=== PATIENT | female | born 1965 | race Caucasian/White ===

== ENCOUNTER → 2017-09-02 14:12 | Outpatient (CLI) | payer OTHER, SELFPAY ==
--- NOTE | 2017-09-02 14:14 | MR_ITS ---
MR shoulder RT wo con Ordering Physician: Edwin Islas MD Patient Age: 52 years: Female HISTORY: ITS.REASON: ROTATOR CUFF SYNDROME OF RIGHT SHOULDER Shoulder pain for over 6 months or longer. Limited range of motion TECHNIQUE: Multiplanar multisequence imaging 1.5 [facility] MRI. COMPARISON :No plain films FINDINGS:. Multiple findings, abnormalities Abnormal Rotator Cuff: Supraspinatus tendon Markedly thickened inflamed appearing supraspinatus tendon reflecting prominent chronic tendinopathy likely mucoid degeneration throughout the enlarged supraspinatus tendon. There may be some associated undersurface tear at the more superior fibers appear intact.. Sagittal image 9. No supraspinatus tendon retraction.. No prominent fluid at subdeltoid subacromial bursa Subscapularis tendon appears thickened but with only mild tendinopathy The Superior Glenoid Labrum appears irregular,-suspect degenerated and possibly torn. A Thickened swollen & enlarged structure leads from abnormal appearing superior labrum. Difficult to tell this reflects a torn biceps tendon as as I lose the biceps tendon as it passes superior to the bicipital groove. It may be a torn biceps versus Marcia abnormal middle glenohumeral ligament ( and/or superiorGHL) accounting for this ill-defined unusual thickened edematous appearing structure on axial image 11, sagittal slice 13 passing through the anterior interval region. & continuing distal along the superior margin of the subscapularis tendon . There is fluid tracking along the biceps tendon sheath is some minimal questionable debris more inferiorly along this tendon sheath. Prominent large joint effusion with with fluid extending to the anterior subcoracoid recess.. Developing Arthritic changes at glenohumeral joint with Hypertrophic lipping is seen about the margin of the humeral head most evident. Mild narrowing at the glenohumeral joint inferiorly. . Mild to moderate AC joint arthropathy, hypertrophy. . Just posterior and superior to the subscapularis tendon, towards anterior interval region, there abnormal thickened structure with increased signal. I would question & am suspect this reflects a swollen abnormal/ injured middle glenohumeral ligament. Note the irregularity at the anterior superior glenoid labrum which may reflect disruption at the attachment of the MCL. And possibly the superior GHL . The muscles of rotator cuff are actually fairly well maintained. Infraspinatus and teres minor intact. ------ IMPRESSION: ----- Variety of abnormalities.--- 1.... Prominent Chronic Supraspinatus Tendinopathy. .. Diffusely prominent thickened supraspinatus tendon with increased signal likely reflecting prominent chronic tendinopathy/ mucoid degeneration. Likely diffuse mucoid degeneration along with partial tears along inferior surface (But no full-thickness tear nor retraction) 2.. Abnormal appearing Superior Glenoid Labrum,... At ~ 11- 12 o'clock position Suspect abnormal complex of structures leading to this irregular & likely torn superior labrum. ... Middle Glenohumeral Ligament I suspect is enlarged & edematous with increased signal throughout.- Possibly torn, question early along with the superior glenohumeral ligament an possibly anterior joint capsule. ... In addition the Biceps Tendon with increased signal & ill-defined as it passes over the humeral head & becomes lost as it passes towards towards the biceps anchor..- Either reflecting significant tendinopathy or tear of biceps tendon 3. Prominent joint effusion. Generous fluid extends to the subcoracoid recess; but no significant fluid in the subacromial bursa 4... Developing degenerative changes at inferior glenohumeral joint also noted 5... Mild/moderate AC joint arthropat
== END ==
PROVIDERS: PCP Internal Medicine Adolescent Medicine; Visit Provider Internal Medicine Adolescent Medicine
DX: M75.101 Unspecified rotator cuff tear or rupture of right shoulder, not specified as traumatic (principal)
CPT/HCPCS: 73221

== ENCOUNTER → 2018-01-11 10:20 | Outpatient (CLI) | payer OTHER, SELFPAY ==
--- NOTE | 2018-01-11 10:22 | MM_ITS ---
MM Dig screening mamm BI w/CAD ORDERING PHYSICIAN : Guillermo Ortiz MD PATIENT AGE: 53 years GENDER: Female COMPARISON: June 2015, September 2016, INDICATION: ITS.REASON: Routine Screening Mammogram no hormones. No new complaints Previous biopsy right breast. Family history. Paternal grandmother TECHNIQUE: Standard CC and MLO images were obtained. R2 CAD reviewed. FINDINGS: Lower density breast. Generalized fatty replacement. RIGHT BREAST:Area of mild architectural distortion in density at the 12:00 right breast on this is been seen dating back to 2015 as well as 2012... Appears reflect the previous biopsy right breast. Stable benign calcification right breast as well. LEFT BREAST:Stable with no areas of concern IMPRESSION:------- No significant new findings . Follow-up in one year recommended Long-standing Subtle architectural distortion & vague density superior right breast from previous biopsy. BI-RADS Category: 2 Benign Finding(s) RECOMMENDED FOLLOW-UP: 1YR 1 YEAR FOLLOW-UP (A letter has been sent to the patient regarding results of the study.)
== END ==
PROVIDERS: PCP Internal Medicine Adolescent Medicine; Visit Provider Nurse Practitioner Obstetrics & Gynecology
DX: Z12.31 Encounter for screening mammogram for malignant neoplasm of breast (principal)
CPT/HCPCS: 77067

== ENCOUNTER 2018-01-19 09:00 | Outpatient (RCR) | payer OTHER, SELFPAY | END 2018-01-19 09:01 | disposition home or self-care (01) | LOC: PT 09:00 | PROVIDERS: PCP Internal Medicine Adolescent Medicine; Visit Provider Orthopaedic Surgery | DX: M75.81 Other shoulder lesions, right shoulder (principal) | CPT/HCPCS: 97010; 97014; 97016; 97033; 97035; 97110; 97140; 97163; 97164; G0283 ==

== ENCOUNTER → 2018-06-25 05:08 | Outpatient (CLI) | payer OTHER, SELFPAY ==
[2018-06-25 08:10] LABS: Alanine Aminotransferase 62 U/L (12-78); Albumin Level 3.7 gm/dL (3.4-5.0); Alkaline Phosphatase 52 U/L (46-116); Anion Gap 15.8 mEq/L (5-15); Aspartate Amino Transferase 26 U/L (15-37); Bilirubin,Total 0.3 mg/dL (0.2-1.0); Blood Urea Nitrogen 19 mg/dL (7-18); Calcium 9.7 mg/dL (8.5-10.1); Carbon Dioxide 26 mmol/L (21.0-32.0); Chloride 103 mmol/L (98-107); Chol/HDL Ratio 6.3 (1-3.5); Cholesterol 240 mg/dL (140-200); Creatinine,Serum 1.01 mg/dL (0.55-1.02); Estimated Glomerular Filt Rate 58 ml/min (>60); GFR (African American) 70 ML/MIN (>60); Globulin 3.7 gm/dl (1.3-3.2); Glucose 235 mg/dL (74-106); HDL Cholesterol 38 mg/dL (29-89); LDL Cholesterol 140 mg/dL (0-130); Potassium 4.8 mmoL/L (3.5-5.1); Sodium 140 mmol/L (136-145); Total Protein,Serum 7.4 gm/dL (6.4-8.2); Triglycerides 308 mg/dL (30-200); VLDL Cholesterol 62 mg/dL (0-40)
[2018-06-25 08:34] LABS: Hemoglobin A1C 9.1 % (0.0-7.0)
== END ==
PROVIDERS: PCP Internal Medicine Adolescent Medicine; Visit Provider Internal Medicine Adolescent Medicine
DX: E11.9 Type 2 diabetes mellitus without complications (principal); Z79.4 Long term (current) use of insulin
CPT/HCPCS: 36415; 80053; 80061; 83036

== ENCOUNTER → 2018-11-22 10:02 | Outpatient (CLI) | payer OTHER, SELFPAY ==
[2018-11-22 11:04] LABS: Hemoglobin A1C 8.4 % (0.0-7.0)
[2018-11-22 13:43] LABS: Alanine Aminotransferase 35 U/L (12-78); Albumin Level 3.2 gm/dL (3.4-5.0); Alkaline Phosphatase 53 U/L (46-116); Anion Gap 13.7 mEq/L (5-15); Aspartate Amino Transferase 18 U/L (15-37); Bilirubin,Total 0.4 mg/dL (0.2-1.0); Blood Urea Nitrogen 16 mg/dL (7-18); Calcium 9.4 mg/dL (8.5-10.1); Carbon Dioxide 27 mmol/L (21.0-32.0); Chloride 106 mmol/L (98-107); Estimated Glomerular Filt Rate 66 ml/min (>60); GFR (African American) 80 ML/MIN (>60); Globulin 3.3 gm/dl (1.3-3.2); Glucose 185 mg/dL (74-106); Potassium 4.7 mmoL/L (3.5-5.1); Sodium 142 mmol/L (136-145); Total Protein,Serum 6.5 gm/dL (6.4-8.2)
== END ==
PROVIDERS: Visit Provider Internal Medicine Adolescent Medicine
DX: E11.9 Type 2 diabetes mellitus without complications (principal); Z79.84 Long term (current) use of oral hypoglycemic drugs; Z79.4 Long term (current) use of insulin
CPT/HCPCS: 36415; 80053; 83036

== ENCOUNTER → 2018-11-24 10:00 | Outpatient (CLI) | payer OTHER, SELFPAY ==
--- NOTE | 2018-11-24 10:06 | XR_ITS ---
PROCEDURE: XR HIP RT 2-3V W/PELVIS CLINICAL INDICATION: BILAT HIP PAIN COMPARISON: No exams were available for comparison FINDINGS: There are minimal osteoarthritic changes of the right hip. No fracture or dislocation. No lytic or blastic change IMPRESSION: . minimal osteoarthritis Dictated by: Angel Ramirez MD 11/24/2018 16:41 Signed by: <Electronically signed by Angel Ramirez MD in [place]> 11/24/2018 16:41
--- NOTE | 2018-11-24 10:06 | XR_ITS ---
PROCEDURE: XR HIP LT 2-3V W/PELVIS CLINICAL INDICATION: BILAT HIP PAIN COMPARISON: XR HIP RT 2-3V W/PELVIS from 11/24/2018 FINDINGS: No fracture or dislocation is evident. No significant degenerative change. No lytic or blastic change. Unremarkable soft tissues. IMPRESSION: Negative left hip Dictated by: Angel Ramirez MD 11/24/2018 16:43 Signed by: <Electronically signed by Angel Ramirez MD in [place]> 11/24/2018 16:43
--- NOTE | 2018-11-24 10:06 | XR_ITS ---
PROCEDURE: XR LUMBAR SPINE MIN 4V CLINICAL INDICATION: BILAT HIP PAIN Low back pain COMPARISON: No exams were available for comparison FINDINGS: Minimal levoscoliosis. There is degenerative disc disease at L4-L5. No fracture or dislocation. Mild facet sclerotic changes are present at L5-S1. Hypertrophic changes of the facets are present at L5-S1. IMPRESSION: Degenerative disc disease L4-5 with facet arthritic change at L5-S1 Dictated by: Angel Ramirez MD 11/24/2018 16:40 Signed by: <Electronically signed by Angel Ramirez MD in [place]> 11/24/2018 16:40
== END ==
PROVIDERS: PCP Internal Medicine Adolescent Medicine; Visit Provider Internal Medicine Adolescent Medicine
DX: M25.552 Pain in left hip (principal); M25.551 Pain in right hip
CPT/HCPCS: 72110; 73502

== ENCOUNTER → 2018-12-29 07:47 | Outpatient (CLI) | payer OTHER, SELFPAY ==
--- NOTE | 2018-12-29 07:49 | MR_ITS ---
PROCEDURE: MR LUMBAR SPINE WO CON CLINICAL INDICATION: back pain Right-sided low back pain, left leg pain and numbness COMPARISON: [employer]/O MRI-L-SPINE W/O from 02/12/2016 TECHNIQUE: Standard multiplanar multiecho sequences are performed without contrast. 3-D MIP and myelographic images are also rendered and reviewed FINDINGS: The spinal cord ends at the L1 level. T11-T12, T12-L1, L1-L2, and L2-L3 have an unremarkable appearance. L3-L4: Mild degenerative disc disease with mild bulging disc and mild facet ligamentum hypertrophy with mild bilateral lateral recess and foraminal narrowing slightly greater on the right not significantly changed. L4-5: Degenerate disc disease. There is moderate facet ligamentum hypertrophy which is more prominent on the left causing mild left-sided lateral recess narrowing causing some impingement upon the posterior aspect of the thecal sac on the left not. This facet hypertrophic change may be slightly more prominent than when compared to the previous exam. Small amount fluid is also present in the facet joint at this level. L5-S1: Degenerate disc disease with mild facet and ligamentum hypertrophy with mild bilateral foraminal narrowing. No canal stenosis or extruded herniated disc. IMPRESSION: 1. L3-L4: Mild degenerative disc disease with mild bulging disc and mild facet ligamentum hypertrophy with mild bilateral lateral recess and foraminal narrowing slightly greater on the right not significantly changed. 2. L4-5: Degenerate disc disease. There is moderate facet ligamentum hypertrophy which is more prominent on the left causing mild left-sided lateral recess narrowing causing some impingement upon the posterior aspect of the thecal sac on the left not. This facet hypertrophic change may be slightly more prominent than when compared to the previous exam. Small amount fluid is also present in the facet joint at this level. 3. L5-S1: Degenerate disc disease with mild facet and ligamentum hypertrophy with mild bilateral foraminal narrowing. 4. No extruded herniated disc or bony canal stenosis Dictated by: Angel Ramirez MD 12/30/2018 10:54 Electronically signed by Angel Ramirez MD in [place] 12/30/2018 10:54
== END ==
PROVIDERS: PCP Internal Medicine Adolescent Medicine; Visit Provider Orthopaedic Surgery
DX: M54.16 Radiculopathy, lumbar region (principal)
CPT/HCPCS: 72148; 76376

== ENCOUNTER → 2019-02-02 17:49 | Outpatient (CLI) | payer OTHER, SELFPAY ==
--- NOTE | 2019-02-02 17:54 | MM_ITS ---
PROCEDURE: MM DIG SCREENING MAMM BI W/CAD Patient Age:54Y CLINICAL INDICATION: Routine Screening Mammogram. No hormones. Current going through menopause but Previous needle biopsy right breast.. Scar 12 o'clock superior right breast noted on history sheet Family history. Paternal grandmother breast cancer history states in her the 20s COMPARISON: DIGMAMMS MAMMOGRAM SCREEN-[employer] EXHIBITOR N/C from 07/21/2008 [facility] DIGITAL MAMM-SCREEN BILATERAL from 12/27/2010 [facility] DIGITAL MAMM-SCREEN BILATERAL from 01/02/2012 [facility] DIG MAMM-SCREEN JOSE JUAN from 02/21/2013 [facility] DIG MAMM-SCREEN JOSE JUAN from 06/15/2015 [facility] DIG MAMM-SCREEN JOSE JUAN W/CAD from 09/26/2016 [facility] MM Dig screening mamm BI w/CAD from 01/11/2018 TECHNIQUE: The standard CC and MLO images were obtained. R2 CAD reviewed. Additional axillary CC views bilaterally included as well as a nipple profile left MLO view FINDINGS: Right breast: No new areas of concern right breast. Minimal residual scar evident from previous biopsy superior right breast.. However this feature is stable with no mass and with central fat density. Other features minor densities right breast appear stable as well Left breast: Stable with no new findings but IMPRESSION: Stable bilateral mammogram. Bilateral follow-up 1 year recommended No significant new findings either breast Low-density breast with minimal stable scarring superior right breast again noted/unchanged BI-RAD Category: 1 Negative FOLLOW-UP: 1YR 1 Year Follow-up (A letter has been sent to the patient regarding results of the study.) Dictated by: Chato Martin MD 02/05/2019 11:21 Electronically signed by Chato Martin MD in [place] 02/05/2019 11:21
== END ==
PROVIDERS: PCP Internal Medicine Adolescent Medicine; Visit Provider Nurse Practitioner Obstetrics & Gynecology
DX: Z12.31 Encounter for screening mammogram for malignant neoplasm of breast (principal)
CPT/HCPCS: 77067

== ENCOUNTER 2019-02-07 10:00 | Outpatient (RCR) | payer OTHER, SELFPAY ==
--- NOTE | 2018-12-22 09:11 | HMH.PTOPEV ---
PT Outpatient Evaluation Rehab PT Outpatient Evaluation Start: 12/22/18 08:20 Freq: Status: Active Protocol: Document 12/22/18 08:20 JANETTE (Rec: 12/22/18 09:11 JANETTE [id number]) Electronically Signed By Andrea Gann, PT 12/22/18 08:20 Outpatient Therapy Subjective History Subjective History Pt reports h/o chronic B hip pain, R hip for ~1 yr, and L hip ~1month. Pt reports insidious onset s/s with R>L sided hip pain, and h/o LBP w/ recent Xrays revealing DDD @L4 -5. I'm not sure if some of this pain isn't coming from my back'. Pt currently reports localized greater trochanteric area pain bilaterally, and also reports intermittent radicular s/s in B LE. Chief Complaint Pain,Stiff,Weakness Symptom Type Ache,Sharp,Dull Symptoms Relieved By Rest/Positioning Symptoms Aggravated By Standing,Walking Prior Functional Limitations Housework,Standing,Walking, Stairs Current Functional Limitations Housework,Standing,Walking, Stairs Symptom Description Constant but Variable Level of pain today (0-10) 4 Pain scale - at its best (0-10) 1 Pain scale - at its worst (0-10) 7 Hip/Knee Eval Gait Observation General Gait Pattern Observation Antalgic Gait,Wide Based Gait Assistive Device Assistive Devices None / NA Palpation Tenderness right Knee Palpation Overall Comment 3/4 grt. tro., piri Hip Palpation Findings Tenderness,Trigger Point left Knee Palpation Overall Comment 3/4 grt. tro, piri Hip Palpation Findings Tenderness,Trigger Point MMT bilateral Hip Flexion Strength Grade 4- Good- Hip Adduction Strength Grade 4- Good- Hip Extension Strength Grade 4- Good- Gluteus Jake Strength Grade 4- Good- Hip External Rotation Strength Grade 4 Good Hip Internal Rotation Strength Grade 3+ Fair+ Knee Extension Strength Grade 5 Normal Knee Flexion Strength Grade 5 Normal ROM Hip Flexion w/Knee Extended Passive 0-75 Range of Motion (degrees) Hip Extension Passive Range of Motion ( 0-50 degrees) Hip ROM Limitations Soft Tissue Tightness Special Tests Hip Jaspreet Test Positive Left,Positive Right Hip Piriformis Test Positive Left,Positive Right Sciatic Nerve Tension Test Negative Left,Negative Right Outpatient Therapy Assessment Impairments Problems/Impairmments Palpation Ten
--- NOTE | 2019-01-24 11:18 | HMH.RHREAS ---
Rehab Reassessment Rehab OP Re-assessment Start: 01/24/19 11:09 Freq: Status: Active Protocol: Document 01/24/19 11:10 JANETTE (Rec: 01/24/19 11:17 JANETTE [id number]) Electronically Signed By Andrea Gann, PT 01/24/19 11:10 Rehab Re-assessment Subjective Subjective PT REPORTS 07/14 B HIP PAIN ON VAS, 'AFTER I JUST HAD A REALLY BAD WEEKEND, I WORKED 14 HOURS ON THURSDAY, IT FEELS 40% BETTER OVERALL', SINCE I EVAL Objective Objective Notes AROM: B HIP FLX W/KNEE EXT 0- 90, PROM: B HIP EXT 0-50 MMT: L HIP IR 4+/5, R HIP IR 4 /5-POST TRPDN, B KNEE EXT AND FLX 5/5, B HIP FLX,EXT, ABD, ADD 4/5 TTP: B GRT TRO 2-3/ Assessment Progress Assessment Slower Than Expected Assessment Notes PT HAS MADE IMPROVEMENTS W/ STRENGTH, AND FLEXIBILITY Patient goals met STG'S 09/11 LTG'S 06/14 Goals Not Met STG'S 05/14, LTG'S 11/14 Plan Plan PT TO CONT. W/SKILLED P.T. TO MAKE FURTHER IMPROVEMENTS IN B HIP PAIN, STRENGTH, AND FLEXIBILITY/ROM TO ALLOW FOR OPTIMAL FUNCTION Frequency of Therapy 2-3X/WK Duration of therapy 3-4WKS Time and Billing Re-Eval Time 15 Re-Eval Billing Units 1 PHYSICIAN CERTIFICATION: I certify the specified therapy services for Hanane Higginbotham are required, authorized, and reviewed every 30 days.
== END 2019-02-07 10:05 | disposition home or self-care (01) ==
LOC: PT 10:00
PROVIDERS: Visit Provider Orthopaedic Surgery
DX: M70.60 Trochanteric bursitis, unspecified hip (principal); M54.16 Radiculopathy, lumbar region
CPT/HCPCS: 97010; 97014; 97033; 97035; 97110; 97140; 97163; 97164; 97760; G0283

== ENCOUNTER → 2019-05-03 11:59 | Outpatient (POV) | payer OTHER, SELFPAY | PROVIDERS: Visit Provider Dermatology | DX: Z00.00 Encounter for general adult medical examination without abnormal findings (principal) ==

== ENCOUNTER → 2019-05-06 16:18 | Outpatient (CLI) | payer OTHER, SELFPAY ==
--- NOTE | 2019-05-06 16:21 | XR_ITS ---
PROCEDURE: XR CHEST 2V CLINICAL HISTORY: BRONCHOPNEUMONIA COMPARISON: KUB KUB (SINGLE VIEW) from 03/11/[address] abdomen pelvis wo con from 10/13/2017 FINDINGS: There is mild cardiomegaly without failure. There is increased density in the right lung base medially consistent with an area of infiltrate. The remaining lungs are clear. No acute bony findings. IMPRESSION: Right basilar infiltrate Dictated by: Angel Ramirez MD 05/06/2019 17:00 Electronically signed by Angel Ramirez MD in [place] 05/06/2019 17:00
== END ==
PROVIDERS: PCP Internal Medicine Adolescent Medicine; Visit Provider Internal Medicine Adolescent Medicine
DX: J18.0 Bronchopneumonia, unspecified organism (principal)
CPT/HCPCS: 71046

== ENCOUNTER → 2019-06-27 10:48 | Outpatient (CLI) | payer OTHER, SELFPAY ==
[2019-06-27 14:12] LABS: Chol/HDL Ratio 5.8 (1-3.5); Cholesterol 251 mg/dl (140-200); HDL Cholesterol 43 mg/dl (40-60); Triglycerides 242 mg/dl (30-150); VLDL Cholesterol 48 mg/dL (0-40)
[2019-06-27 14:23] LABS: Direct LDL Cholesterol 193.79 mg/dL (100-129)
== END ==
PROVIDERS: Visit Provider Internal Medicine Adolescent Medicine
DX: E11.9 Type 2 diabetes mellitus without complications (principal); Z79.84 Long term (current) use of oral hypoglycemic drugs
CPT/HCPCS: 36415; 80061; 83036

== ENCOUNTER → 2019-09-29 07:02 | Outpatient (CLI) | payer OTHER, SELFPAY ==
[2019-09-29 09:56] LABS: Chloride 105 mmol/L (98-107); Potassium 5.1 mmoL/L (3.5-5.1); Sodium 139 mmol/L (136-145)
[2019-09-29 09:58] LABS: Blood Urea Nitrogen 25 mg/dl (7-17); Estimated Glomerular Filt Rate 52 ml/min (>60); GFR (African American) 63 ML/MIN (>60)
[2019-09-29 09:59] LABS: Anion Gap 13.1 mEq/L (5-15); Calcium 9.7 mg/dl (8.4-10.2); Carbon Dioxide 26 mmol/L (22.0-30.0); Cholesterol 241 mg/dl (140-200); Glucose 171 mg/dl (74-100); HDL Cholesterol 40 mg/dl (40-60); Triglycerides 320 mg/dl (30-150); VLDL Cholesterol 64 mg/dL (0-40)
[2019-09-29 10:10] LABS: Direct LDL Cholesterol 169.22 mg/dL (100-129)
[2019-09-29 11:35] LABS: Hemoglobin A1C 8.4 % (4.0-6.0)
== END ==
PROVIDERS: Visit Provider Internal Medicine Adolescent Medicine
DX: E11.9 Type 2 diabetes mellitus without complications (principal); Z79.4 Long term (current) use of insulin
CPT/HCPCS: 36415; 80048; 80061; 83036

== ENCOUNTER → 2019-12-16 07:40 | Outpatient (CLI) | payer OTHER, SELFPAY ==
--- NOTE | 2019-12-16 06:05 | ECG_ITS ---
APPROVED REPORT Exam: Resting ECG HR:67 bpm ECG Measurements Heart Rate 67 AXES DE 154 P 26 QRSd 90 QRS -16 QT 408 T 18 QTc 431 <Conclusion> Normal sinus rhythm Minimal voltage criteria for LVH, may be normal variant Cannot rule out Anterior infarct, age undetermined Abnormal ECG Electronically signed by : Edwin Islas, 12/18/2019 15:01:36
== END ==
PROVIDERS: PCP Internal Medicine Adolescent Medicine; Visit Provider Neurological Surgery
DX: Z00.00 Encounter for general adult medical examination without abnormal findings (principal)
CPT/HCPCS: 93005

== ENCOUNTER → 2020-03-09 05:07 | Outpatient (CLI) | payer OTHER, SELFPAY ==
[2020-03-09 05:57] LABS: Chloride 100 mmol/L (98-107); Potassium 4.1 mmoL/L (3.5-5.1); Sodium 138 mmol/L (136-145)
[2020-03-09 05:58] LABS: Basophils % 0.4 % (0.1-2.0); Eosinophils # 0.3 K/mm3 (0.0-0.4); Eosinophils % 2.7 % (0.1-12.0); Hemoglobin 11.8 g/dL (12.2-16.2); Lymphocytes # 2.4 K/mm3 (0.7-4.5); Lymphocytes % 21.5 % (10-50); Mean Corpuscular HGB Conc 31.1 g/dL (31.8-35.4); Mean Corpuscular Hemoglobin 27.8 pg (27.0-31.2); Mean Corpuscular Volume 89.2 fl (81-99); Mean Platelet Volume 7.8 fl (7.4-10.4); Monocytes # 0.4 K/mm3 (0.1-1.0); Monocytes % 3.6 % (1.7-9.3); Neutrophils % 71.8 % (37.0-80.0); Platelet Count 559 K/mm3 (142-424); Red Blood Count 4.26 M/mm3 (4.20-5.40); Red Cell Distribution Width 15.1 % (11.5-17.5); White Blood Count 11.2 K/mm3 (4.8-10.8)
[2020-03-09 05:59] LABS: Alanine Aminotransferase 54 U/L (12-78); Alkaline Phosphatase 59 U/L (38-126); Anion Gap 15.1 mEq/L (5-15); Aspartate Amino Transferase 40 U/L (14-36); Bilirubin,Total 0.5 mg/dl (0.2-1.3); Blood Urea Nitrogen 20 mg/dl (7-17); Carbon Dioxide 27 mmol/L (22.0-30.0); Estimated Glomerular Filt Rate 58 ml/min (>60); GFR (African American) 70 ML/MIN (>60)
[2020-03-09 06:00] LABS: Albumin Level 4.3 g/dl (3.5-5.0); Albumin/Globulin Ratio 1.3 (1.1-1.8); Calcium 9.7 mg/dl (8.4-10.2); Chol/HDL Ratio 5.7 (1-3.5); Cholesterol 215 mg/dl (140-200); Globulin 3.2 g/dL (1.3-3.2); Glucose 132 mg/dl (74-100); HDL Cholesterol 38 mg/dl (40-60); Magnesium 1.3 mg/dl (1.6-2.3); Total Protein,Serum 7.5 g/dl (6.3-8.2); Triglycerides 237 mg/dl (30-150); VLDL Cholesterol 47 mg/dL (0-40)
[2020-03-09 06:11] LABS: Direct LDL Cholesterol 136.08 mg/dL (100-129)
[2020-03-09 06:30] LABS: Thyroid Stimulating Hormone 2.18 uIU/mL (0.465-4.68)
[2020-03-09 07:23] LABS: Hemoglobin A1C 7.3 % (4.0-6.0)
[2020-03-09 09:58] LABS: Vitamin B12 192 pg/mL (239-931)
[2020-03-18 15:18] LABS: 1,25 Dihydroxy Vitamin D 21 pg/mL (.); 1,25-Dihydroxy, Vitamin D-2 18 pg/mL (.); 1,25-Dihydroxy, Vitamin D-3 <10 pg/mL (.)
== END ==
PROVIDERS: PCP Internal Medicine Adolescent Medicine; Visit Provider Internal Medicine Adolescent Medicine
DX: R42 Dizziness and giddiness (principal); E55.9 Vitamin D deficiency, unspecified; E11.9 Type 2 diabetes mellitus without complications; Z79.4 Long term (current) use of insulin
CPT/HCPCS: 80053; 80061; 82607; 82652; 83036; 83735; 84443; 85025

== ENCOUNTER → 2020-03-14 16:33 | Outpatient (CLI) | payer OTHER, SELFPAY ==
--- NOTE | 2020-03-14 | MR_ITS ---
PROCEDURE: MR HEAD/BRAIN WO CON CLINICAL INDICATION: S/P LOW BACK SURGERY 01/2020 MEMORY AND BALANCE ISSUES SINCE PATIENT STATES LUMBAR SUGERY IN DEC 2019. SINCE SURGERY PROBLEMS WITH MEMORY LOSS AND DIZZINESS. HX HYPERTENSION. NO PRIOR. COMPARISON: No exams were available for comparison TECHNIQUE: Routine multiplanar multi echo sequences are performed without gadolinium enhancement. FINDINGS: No midline shift, mass effect, intracranial hemorrhage, or hydrocephalus. No evidence of acute infarction. The cerebellopontine angle, cerebellum, brainstem and mid brain have an unremarkable appearance. There are scattered periventricular and subcortical T2 white matter hyperintensities. These do not demonstrate restricted diffusion. No corpus callosum callosum involvement. No upper cervical cord involvement to the C3 level. 3D DIR images obtained showing increased signal on the above mention lesions some lesions are oriented perpendicular to the long axis of the lateral ventricle. This is best demonstrated on the sagittal images. No abnormalities evident within the cerebellum or temporal horns. No mastoid effusion or sinus air-fluid level. There is a small retention cyst in the right maxillary sinus IMPRESSION: 1. Nonspecific T2 white matter hyperintensities as described above. These findings are nonspecific and could be due to ischemic gliotic change from microvascular disease, migraine headache, or multiple sclerosis. Some lesions are oriented perpendicular to the long axis of the lateral ventricles which somewhat increases the suspicion of multiple sclerosis. 2. No acute infarction or other acute anomaly. Dictated by: Angel Ramirez MD 03/15/2020 18:12 Angel Ramirez MD in [place] 03/15/2020 18:12
== END ==
PROVIDERS: PCP Internal Medicine Adolescent Medicine; Visit Provider Internal Medicine Adolescent Medicine
DX: R51.9 Headache, unspecified (principal); R42 Dizziness and giddiness; E11.9 Type 2 diabetes mellitus without complications; Z79.84 Long term (current) use of oral hypoglycemic drugs
CPT/HCPCS: 70551

== ENCOUNTER → 2020-03-19 15:31 | Outpatient (CLI) | payer OTHER, SELFPAY ==
--- NOTE | 2020-03-19 15:37 | MM_ITS ---
PROCEDURE: MM DIG SCREENING MAMM BI W/CAD Digital Breast Tomosynthesis Included CLINICAL INDICATION: screening xmg There is a history of breast cancer in the patient's grandmother. There has been a previous biopsy right breast for benign disease. COMPARISON: MG [facility] DIG MAMM-SCREEN JOSE JUAN W/CAD from 09/26/2016 MG [facility] MM Dig screening mamm BI w/CAD from 01/11/2018 MG MM DIG SCREENING MAMM BI W/CAD from 02/02/2019 TECHNIQUE: Standard CC and MLO images and 3D Tomosynthesis was obtained. R2 CAD reviewed. FINDINGS: Scattered diffuse fibroglandular densities are seen throughout both breast and the findings are and symmetrical. There is minimal post biopsy scarring right breast with a couple of associated benign-appearing macrocalcifications. There are no CAD markings. There are few additional benign-appearing microcalcifications right breast. There are fatty replaced nodes in both axilla. There is no suspicious lesion and no suspicious microcalcifications. IMPRESSION: Fibrofatty parenchyma with no suspicious lesions seen BI-RAD Category: 2 Benign Finding(s) FOLLOW-UP: 1YR 1 Year Follow-up (A letter has been sent to the patient regarding results of the study.) Dictated by: Dr. Farhat Iraheta MD 03/21/2020 11:27 Dr. Farhat Iraheta MD in [place] 03/21/2020 11:27
== END ==
PROVIDERS: PCP Internal Medicine Adolescent Medicine; Visit Provider Nurse Practitioner Obstetrics & Gynecology
DX: Z12.31 Encounter for screening mammogram for malignant neoplasm of breast (principal)
CPT/HCPCS: 77063; 77067

== ENCOUNTER → 2020-04-10 10:01 | Outpatient (CLI) | payer OTHER, SELFPAY ==
[2020-04-11 09:51] LABS: Homocyst(e)ine 7.5 umol/L (0.0-14.5)
[2020-04-15 18:04] LABS: Methylmalonic Acid 232 nmol/L (0-378)
== END ==
PROVIDERS: Visit Provider Specialist
DX: R42 Dizziness and giddiness (principal); R51.9 Headache, unspecified
CPT/HCPCS: 36415; 82131; 82746; 83090

== ENCOUNTER 2020-06-20 10:00 | Outpatient (RCR) | payer OTHER, SELFPAY ==
--- NOTE | 2020-04-17 14:52 | HMH.PTOPEV ---
PT Outpatient Evaluation Rehab PT Outpatient Evaluation Start: 04/17/20 13:05 Freq: Status: Active Protocol: Document 04/17/20 14:18 PHORNE (Rec: 04/17/20 14:52 PHORNE [id number]) Electronically Signed By Almas Baltazar, PT 04/17/20 14:18 Outpatient Therapy Subjective History Subjective History Pt is 55 yowf who presents with c/o vertigo with certain activities x ~ 4 mos and R anterior hip/thigh pain x ~ 2 mos. Pt reports she had mild vertigo symptoms prior to Lumbar surgery (L4-5 PLIF) 2020 and began having R hip pain ~ 1 mo after her surgery. She reports vertigo seems to be worse with positional changes, especially with looking up after having head down and in the shower when I close my eyes. She reports intermittent tinnitus, but no hearing loss. She also reports mild blurry vision which appears worse in the L visual field of both eyes. She reports R hip pain is worse with transfers, especially sit /stand. And she is very tender to palpation around the R inguinal area. [place]-halpike and horizontal roll testing results in c/o vertigo and nausea, worse to the L side, but no nystagmus noted. Chief Complaint Pain,Other Symptom Type Ache,Sharp,Shooting Symptoms Relieved By Rest/Positioning Symptoms Aggravated By Physical Activity Prior Functional Limitations None Current Functional Limitations Standing,Recreation Activity, Walking,Stairs,Balance Symptom Description Constant but Variable Level of pain today (0-10) 5 Pain scale - at its worst (0-10) 8 Hip/Knee Eval Gait Observation General Gait Pattern Observation Antalgic Gait Palpation Tenderness right Hip Palpation Findings Tenderness MMT Hip Flexion Strength Grade 4- Good- Hip Abduction Strength Grade 4 Good Hip Adduction Strength Grade 5 Normal Hip Extension Strength Grade 4 Good Knee Extension Strength Grade 5 Normal Knee Flexion Strength Grade 5 Normal Special Tests
--- NOTE | 2020-06-06 11:52 | HMH.RHREAS ---
Rehab Reassessment Rehab OP Re-assessment Start: 06/06/20 11:47 Freq: Status: Active Protocol: Document 06/06/20 11:47 RILEY (Rec: 06/06/20 11:52 PHOJACKIE [id number]) Electronically Signed By Almas Baltazar, PT 06/06/20 11:47 Rehab Re-assessment Subjective Subjective Pt reports current pain 4/10, but 10/10 yesterday. Objective Objective Notes MMT R Hip: Flexion 4-/5, ABD 4 /5 Gait: Antalgic gait pattern remains. Assessment Progress Assessment Slower Than Expected Assessment Notes Pt has had difficulty getting to therapy due to recent bad weather and work commitments, but she is more able to come consistently now. She continues to have significant irritation of the R inguinal area with activity. Patient goals met none Goals Not Met ST,2,3,4,5 LT,2,3, 4,5,6,7,8 Revised Goals none Plan Plan Continue per initial POC Frequency of Therapy 2 x/wk Duration of therapy 8 wks Time and Billing Re-Eval Time 15 Re-Eval Billing Units 1 PHYSICIAN CERTIFICATION: I certify the specified therapy services for Hanane Higginbotham are required, authorized, and reviewed every 30 days.
== END 2020-06-20 10:05 | disposition home or self-care (01) ==
LOC: PT 10:00
PROVIDERS: Visit Provider Specialist
DX: R42 Dizziness and giddiness; M25.551 Pain in right hip
CPT/HCPCS: 97010; 97014; 97033; 97035; 97110; 97163; 97164; G0283

== ENCOUNTER → 2020-06-25 14:42 | Outpatient (CLI) | payer OTHER, SELFPAY ==
--- NOTE | 2020-06-25 14:46 | XR_ITS ---
PROCEDURE: XR HIP RT 2-3V W/PELVIS CLINICAL INDICATION: RT hip Right hip pain COMPARISON: DX XR HIP RT 2-3V W/PELVIS from 11/24/2018 DX XR HIP LT 2-3V W/PELVIS from 11/24/2018 FINDINGS: There are minimal osteoarthritic changes of the right hip. Hypertrophic changes are present at the iliac crest on both sides no fracture or dislocation. Inter pedicular screws with disc spacer device is present at L4-5. IMPRESSION: Mild osteoarthritis of the right hip Dictated by: Angel Ramirez MD 06/26/2020 06:49 Angel Ramirez MD in [place] 06/26/2020 06:49
== END ==
PROVIDERS: PCP Internal Medicine Adolescent Medicine; Visit Provider Orthopaedic Surgery
DX: M25.551 Pain in right hip (principal)
CPT/HCPCS: 73502

== ENCOUNTER → 2020-06-28 07:06 | Outpatient (CLI) | payer OTHER, SELFPAY ==
[2020-06-28 08:16] LABS: Alanine Aminotransferase 26 U/L (12-78); Albumin Level 4.5 g/dl (3.5-5.0); Albumin/Globulin Ratio 1.7 (1.1-1.8); Alkaline Phosphatase 49 U/L (38-126); Anion Gap 17.7 mEq/L (5-15); Aspartate Amino Transferase 26 U/L (14-36); Bilirubin,Total 0.2 mg/dl (0.2-1.3); Blood Urea Nitrogen 28 mg/dl (7-17); Calcium 10.2 mg/dl (8.4-10.2); Carbon Dioxide 24 mmol/L (22.0-30.0); Chloride 105 mmol/L (98-107); Cholesterol 118 mg/dl (140-200); Estimated Glomerular Filt Rate 58 ml/min (>60); GFR (African American) 70 ML/MIN (>60); Globulin 2.6 g/dL (1.3-3.2); Glucose 126 mg/dl (74-100); HDL Cholesterol 40 mg/dl (40-60); Potassium 4.7 mmoL/L (3.5-5.1); Sodium 142 mmol/L (136-145); Total Protein,Serum 7.1 g/dl (6.3-8.2); Triglycerides 185 mg/dl (30-150); VLDL Cholesterol 37 mg/dL (0-40)
[2020-06-28 08:33] LABS: Direct LDL Cholesterol 48.61 mg/dL (100-129)
[2020-06-28 09:05] LABS: Vitamin B12 438 pg/mL (239-931)
== END ==
PROVIDERS: Visit Provider Internal Medicine Adolescent Medicine
DX: E11.9 Type 2 diabetes mellitus without complications (principal); E78.5 Hyperlipidemia, unspecified; E53.8 Deficiency of other specified B group vitamins; Z79.84 Long term (current) use of oral hypoglycemic drugs
CPT/HCPCS: 36415; 80053; 80061; 82607

== ENCOUNTER → 2020-09-12 12:59 | Outpatient (CLI) | payer OTHER, SELFPAY ==
--- NOTE | 2020-09-12 13:04 | XR_ITS ---
PROCEDURE: XR HAND LT MIN 3V CLINICAL INDICATION: ARTHRITIS Pain COMPARISON: No exams were available for comparison FINDINGS: No fracture or dislocation. No lytic or blastic change. There is normal mineralization. There is mild osteoarthritis at the 1st metacarpal-carpal joint. Nonspecific soft tissue calcification lateral to the 1st metacarpal-carpal joint. No bony erosive changes. Other findings:None. IMPRESSION: Mild osteoarthritis 1st metacarpal-carpal joint with mild periarticular calcification Dictated by: Angel Ramirez MD 09/12/2020 13:31 Angel Ramirez MD in [place] 09/12/2020 13:31
--- NOTE | 2020-09-12 13:04 | XR_ITS ---
PROCEDURE: XR HAND RT MIN 3V CLINICAL INDICATION: ARTHRITIS Pain COMPARISON: No exams were available for comparison FINDINGS: No fracture or dislocation. No lytic or blastic change. There is normal mineralization. Minimal osteoarthritic changes are present at the 1st carpal metacarpal junction and at the 1st interphalangeal joint as well as the 2nd and 3rd DIP joints. No bony erosive changes Other findings:None. IMPRESSION: Mild osteoarthritis the right hand Dictated by: Angel Ramirez MD 09/12/2020 13:30 Angel Ramirez MD in [place] 09/12/2020 13:30
== END ==
PROVIDERS: PCP Internal Medicine Adolescent Medicine; Visit Provider Internal Medicine Adolescent Medicine
DX: M19.042 Primary osteoarthritis, left hand (principal); M19.041 Primary osteoarthritis, right hand
CPT/HCPCS: 73130

== ENCOUNTER → 2020-10-10 11:29 | Outpatient (CLI) | payer OTHER, SELFPAY ==
[2020-10-10 12:27] LABS: Hemoglobin A1C 7.8 % (4.0-6.0)
[2020-10-10 12:59] LABS: Chloride 104 mmol/L (98-107); Potassium 5.6 mmoL/L (3.5-5.1); Sodium 141 mmol/L (136-145)
[2020-10-10 13:02] LABS: Anion Gap 16.6 mEq/L (5-15); Blood Urea Nitrogen 22 mg/dl (7-17); Carbon Dioxide 26 mmol/L (22.0-30.0); Estimated Glomerular Filt Rate 52 ml/min (>60); GFR (African American) 63 ML/MIN (>60)
[2020-10-10 13:03] LABS: Calcium 9.6 mg/dl (8.4-10.2); Glucose 186 mg/dl (74-100); Magnesium 1.3 mg/dl (1.6-2.3)
[2020-10-10 17:38] LABS: Vitamin B12 899 pg/mL (239-931)
== END ==
PROVIDERS: Visit Provider Internal Medicine Adolescent Medicine
DX: E11.9 Type 2 diabetes mellitus without complications (principal)
CPT/HCPCS: 36415; 80048; 82607; 83036; 83735

== ENCOUNTER → 2020-12-25 10:49 | Outpatient (POV) | payer OTHER, SELFPAY | PROVIDERS: Visit Provider Otolaryngology | DX: Z00.00 Encounter for general adult medical examination without abnormal findings (principal) ==

== ENCOUNTER → 2021-01-14 10:54 | Outpatient (CLI) | payer OTHER, SELFPAY ==
[2021-01-14 11:02] LABS: Microscopic, Urine URINE MICROSCOPIC (MICROSCOPIC)
[2021-01-14 11:20] LABS: Basophils # 0.1 K/mm3 (0-0.2); Basophils % 0.5 % (0.1-2.0); Eosinophils # 0.2 K/mm3 (0.0-0.4); Eosinophils % 1.7 % (0.1-12.0); Hematocrit 37.5 % (37.0-47.0); Hemoglobin 11.8 g/dL (12.2-16.2); Lymphocytes # 3.4 K/mm3 (0.7-4.5); Lymphocytes % 29.2 % (10-50); Mean Corpuscular HGB Conc 31.4 g/dL (31.8-35.4); Mean Corpuscular Hemoglobin 27.5 pg (27.0-31.2); Mean Corpuscular Volume 87.5 fl (81-99); Monocytes # 0.4 K/mm3 (0.1-1.0); Monocytes % 3.4 % (1.7-9.3); Neutrophils # 7.6 K/mm3 (1.8-7.8); Platelet Count 560 K/mm3 (142-424); Red Blood Count 4.29 M/mm3 (4.20-5.40); Red Cell Distribution Width 15.5 % (11.5-17.5); White Blood Count 11.7 K/mm3 (4.8-10.8)
[2021-01-14 12:32] LABS: Alanine Aminotransferase 24 U/L (12-78); Albumin Level 4.1 g/dl (3.5-5.0); Albumin/Globulin Ratio 1.5 (1.1-1.8); Alkaline Phosphatase 45 U/L (38-126); Anion Gap 11.3 mEq/L (5-15); Aspartate Amino Transferase 29 U/L (14-36); Bilirubin,Total 0.3 mg/dl (0.2-1.3); Blood Urea Nitrogen 27 mg/dl (7-17); Calcium 9.5 mg/dl (8.4-10.2); Carbon Dioxide 31 mmol/L (22.0-30.0); Chloride 103 mmol/L (98-107); Chol/HDL Ratio 2.3 (1-3.5); Cholesterol 117 mg/dl (140-200); Estimated Glomerular Filt Rate 65 ml/min (>60); GFR (African American) 79 ML/MIN (>60); Globulin 2.7 g/dL (1.3-3.2); Glucose 142 mg/dl (74-100); HDL Cholesterol 50 mg/dl (40-60); Potassium 4.3 mmoL/L (3.5-5.1); Sodium 141 mmol/L (136-145); Total Protein,Serum 6.8 g/dl (6.3-8.2); Triglycerides 93 mg/dl (30-150); VLDL Cholesterol 19 mg/dL (0-40)
[2021-01-14 12:52] LABS: Direct LDL Cholesterol 49.55 mg/dL (100-129)
[2021-01-14 13:17] LABS: Vitamin B12 339 pg/mL (239-931)
[2021-01-14 16:05] LABS: Hemoglobin A1C 7.4 % (4.0-6.0)
[2021-01-14 22:57] LABS: Appearance,Urine CLEAR (Clear); Bilirubin,Urine Negative (Negative); Blood, Urine Negative (Negative); Color,Urine YELLOW (Yellow); Glucose,Urine (UA) Negative (Negative); Ketones,Urine Negative (Negative); Leukocyte Esterase,Urine Negative (Negative); Nitrate,Urine Negative (Negative); PH,Urine 5.5 (5.0-8.5); Protein,Urine Negative (Negative); Specific Gravity, Urine 1.025 (1.005-1.030); Urobilinogen,Urine 0.2 EU/dl (0.2)
[2021-01-14 23:17] LABS: Bacteria,Urine Trace /lpf; Squamous Epithelial Cell,Urine Occasional #/hpf (0-5); Uric Acid Crystals,Urine 1+ /lpf
== END ==
PROVIDERS: Visit Provider Internal Medicine Adolescent Medicine
DX: E11.9 Type 2 diabetes mellitus without complications (principal); E53.8 Deficiency of other specified B group vitamins; Z79.4 Long term (current) use of insulin
CPT/HCPCS: 36415; 80053; 80061; 81001; 82607; 83036; 85025; 87086

== ENCOUNTER 2021-03-06 10:30 | Outpatient (RCR) | payer OTHER, SELFPAY | END 2021-03-06 10:35 | disposition home or self-care (01) | LOC: PT 10:30 | PROVIDERS: PCP Internal Medicine Adolescent Medicine; Visit Provider Family Medicine | DX: M25.551 Pain in right hip (principal); M16.11 Unilateral primary osteoarthritis, right hip | CPT/HCPCS: 97010; 97014; 97110; 97140; 97163; G0283 ==

== ENCOUNTER 2021-03-14 05:17 | Emergency (ER) | payer OTHER, SELFPAY ==
[2021-03-14 05:18] VITALS: BP 171/77; PULSE 63; RESP 18; TEMP 36.9; O2SAT 100; BMI 45.0
[2021-03-14 05:24] VITALS: BMI 35.4
--- NOTE | 2021-03-14 05:25 | CT_ITS ---
PROCEDURE INFORMATION: Exam: CT Abdomen And Pelvis Without Contrast Exam date and time: 03/14/2021 5:25 AM Age: 56 years old Clinical indication: Abdominal pain; Prior surgery; Patient HX: R/O kidney stone; C/O rlq pain that radiates posteriorly. HX of kidney stones. HX of cholecystectomy. TECHNIQUE: Imaging protocol: Computed tomography of the abdomen and pelvis without contrast. Radiation optimization: All CT scans at this facility use at least one of these dose optimization techniques: automated exposure control; mA and/or kV adjustment per patient size (includes targeted exams where dose is matched to clinical indication); or iterative reconstruction. COMPARISON: [facility] CT abdomen pelvis wo con 10/13/2017 2:20 PM FINDINGS: Lungs: Some atelectasis is seen in the right lung base. Liver: Normal. No mass. Gallbladder and bile ducts: The patient is status post cholecystectomy. Pancreas: Normal. No ductal dilation. Spleen: Normal. No splenomegaly. Adrenal glands: Normal. No mass. Kidneys and ureters: There is a 2 mm stone at the right UVJ this results in mild to moderate right-sided hydroureter and hydronephrosis. Perinephric edema is noted on the right. No intrarenal stones are present bilaterally. The left ureter is unremarkable. Stomach and bowel: Unremarkable. No obstruction. No mucosal thickening. Appendix: No evidence of appendicitis. Intraperitoneal space: Unremarkable. No free air. No significant fluid collection. Vasculature: Unremarkable. No abdominal aortic aneurysm. Lymph nodes: Unremarkable. No enlarged lymph nodes. Urinary bladder: Unremarkable as visualized. Reproductive: Unremarkable as visualized. Bones/joints: Unremarkable. No acute fracture. Soft tissues: Unremarkable. IMPRESSION: 2 mm right UVJ stone with resulting mild to moderate right-sided hydroureter and hydronephrosis as well as right-sided perinephric edema.
[2021-03-14 05:35] LABS: Microscopic, Urine URINE MICROSCOPIC (MICROSCOPIC)
[2021-03-14 05:38] LABS: Appearance,Urine CLEAR (Clear); Bilirubin,Urine Negative (Negative); Blood, Urine 2+ (Negative); Color,Urine YELLOW (Yellow); Glucose,Urine (UA) Negative (Negative); Ketones,Urine Negative (Negative); Leukocyte Esterase,Urine Negative (Negative); Nitrate,Urine Negative (Negative); Protein,Urine Negative (Negative); Specific Gravity, Urine 1.025 (1.005-1.030); Urobilinogen,Urine 0.2 EU/dl (0.2)
[2021-03-14 05:42] LABS: Basophils # 0.1 K/mm3 (0-0.2); Basophils % 0.3 % (0.1-2.0); Eosinophils # 0.2 K/mm3 (0.0-0.4); Eosinophils % 1.5 % (0.1-12.0); Hematocrit 36.7 % (37.0-47.0); Hemoglobin 11.7 g/dL (12.2-16.2); Lymphocytes # 2.4 K/mm3 (0.7-4.5); Lymphocytes % 15.3 % (10-50); Mean Corpuscular HGB Conc 31.9 g/dL (31.8-35.4); Mean Corpuscular Hemoglobin 27.4 pg (27.0-31.2); Mean Corpuscular Volume 86.1 fl (81-99); Mean Platelet Volume 7.6 fl (7.4-10.4); Monocytes # 0.6 K/mm3 (0.1-1.0); Monocytes % 3.5 % (1.7-9.3); Neutrophils # 12.5 K/mm3 (1.8-7.8); Neutrophils % 79.3 % (37.0-80.0); Platelet Count 514 K/mm3 (142-424); Red Blood Count 4.26 M/mm3 (4.20-5.40); Red Cell Distribution Width 15.1 % (11.5-17.5); White Blood Count 15.7 K/mm3 (4.8-10.8)
--- NOTE | 2021-03-14 05:44 | HMH.EDUROGF ---
ED Disposition Clinical Impression: Renal colic on right side, Renal insufficiency Disposition: Home, Self-Care Condition on Discharge: Good Instructions: DI for Kidney Stones Additional Instructions: fluids and see pcp and urology for follow up Prescriptions: Tamsulosin HCl [Flomax 0.4mg capsule] 0.4 mg PO HS #10 cap Transmission Status: Pending to [facility] Referrals: Edwin Islas MD [Primary Care Provider] - - Critical Care Critical Care Time: No Attestation: On 03/14/21, the high probability of a clinically significant, sudden or life threatening deterioration of the following system(s) required my full and direct attention, intervention and personal management. The time I documented below is in addition to time spent performing reported procedures but includes the following listed in this critical care notation. Medical Decision Making - Medical Records Medical records reviewed: Yes: I reviewed the patient's medical records. - Fareed Inquiry Pt receiving controlled substance: No Vital Signs: 03/14/21 05:18 Temperature 98.5 F Temperature Source Oral Pulse Rate [Left] 63 Respiratory Rate 18 Blood Pressure [Right Radial Artery] 171/77 H Blood Pressure Mean [Right Radial Artery] 108 02 Sat by Pulse Oximetry 100 Oxygen Delivery Method Room Air - Lab Data Lab results reviewed: Yes: I reviewed the patient's lab results. Lab Results 03/14/21 05:29: Urine Color Yellow, Urine Appearance Clear, Urine pH 6.0, Ur Specific [place] 1.025, Urine Protein Negative, Urine Glucose (UA) Negative, Urine Ketones Negative, Urine Blood 2+, Urine Nitrate Negative, Urine Bilirubin Negative, Urine Urobilinogen 0.2, Ur Leukocyte Esterase Negative, Urine RBC 3-5, Urine WBC Occasional, Urine Bacteria 1+ 03/14/21 05:32: WBC 15.7 H, RBC 4.26, Hgb 11.7 L, Hct 36.7 L, MCV 86.1, MCH 27.4, MCHC 31.9, RDW 15.1, Plt Count 514 H, MPV 7.6, Neut % (Auto) 79.3, Lymph % (Auto) 15.3, [place] % (Auto) 3.5, Eos % (Auto) 1.5, Baso % (Auto) 0.3, Neut # (Auto) 12.5 H, Lymph # (Auto) 2.4, [place] # (Auto) 0.6, Eos # (Auto) 0.2, Baso # (Auto) 0.1 03/14/21 05:32: Sodium 138, Potassium 5.2 H, Chloride 101, Carbon Dioxide 30, Anion Gap 12.2, BUN 22 H, Creatinine 1.40 H, Estimated Creat Clear 66, Estimated GFR 39 L, Est GFR ( Amer) 47 L, Glucose 187 H, Calcium 9.6, Total Bilirubin 0.3, AST 35, ALT 31, Alkaline Phosphatase 50, Total Protein 7.4, Albumin 4.4, Globulin 3.0, Albumin/Globulin Ratio 1.5 Result diagrams: 03/14/21 05:32 03/14/21 05:32 Orders (Tests/Meds): ED MEDICATIONS Generic Name Dose Route Start Last Admin Trade Name Freq PRN Reason Stop Dose Admin Sodium Chloride 1,000 mls @ 999 mls/hr 03/14/21 05:30 03/14/21 05:37 Sod Chlor 0.9% 1000ml Bag IV 03/14/21 06:30 999 mls/hr .Q1H1M SCOTTY Administration Tamsulosin HCl 0.4 mg 03/14/21 21:00 Tamsulosin 0.4mg Capsule PO 04/13/21 20:59 HS SCOTTY Discontinued Medications Generic Name Dose Route Start Last Admin Trade Name Freq PRN Reason Stop Dose Admin Ketorolac Tromethamine 30 mg 03/14/21 05:27 03/14/21 05:35 Ketorolac 30mg/Ml Vial IV 03/14/21 05:28 Not Given ONCE ONE Morphine Sulfate 4 mg 03/14/21 05:35 03/14/21 05:37 Morphine 4mg/Ml Syringe IV 03/14/21 05:36 4 mg ONCE ONE Administration Ondansetron HCl 4 mg 03/14/21 05:35 03/14/21 05:37 Ondansetron 4mg/2ml Vial IV 03/14/21 05:36 4 mg ONCE ONE Administration ORDERS Category Date Time Status Complete Blood Count Auto Diff Stat Lab 03/14/21 05:32 Results Urine Culture Stat Micro 03/14/21 06:39 Ordered - CT Data CT Scan: Abdomen, Pelvis Time Received: 06:[address] Reviewed: Yes: I have viewed the radiologist's interpretation Preliminary Findings: Abnormal (2 mm rt stone ) Female Urogenital HPI - General Chief complaint: Urogenital-Female Stated complaint: ? Kidney Stone Time Seen by Provider: 03/14/21 05:44 Mode of Arrival: Ambulatory
[2021-03-14 05:49] LABS: Bacteria,Urine 1+ /lpf; WBC,Urine Occasional #/hpf (0-3)
[2021-03-14 05:50] LABS: MANUAL DIFFERENTIAL MANUAL DIFFERENTIAL (MANUAL DIFF)
[2021-03-14 05:52] LABS: Alanine Aminotransferase 31 U/L (12-78); Albumin Level 4.4 g/dl (3.5-5.0); Albumin/Globulin Ratio 1.5 (1.1-1.8); Alkaline Phosphatase 50 U/L (38-126); Anion Gap 12.2 mEq/L (5-15); Aspartate Amino Transferase 35 U/L (14-36); Bilirubin,Total 0.3 mg/dl (0.2-1.3); Blood Urea Nitrogen 22 mg/dl (7-17); Calcium 9.6 mg/dl (8.4-10.2); Carbon Dioxide 30 mmol/L (22.0-30.0); Chloride 101 mmol/L (98-107); Creatinine Clearance Estimated 66 mL/min (50-200); Estimated Glomerular Filt Rate 39 ml/min (>60); GFR (African American) 47 ML/MIN (>60); Glucose 187 mg/dl (74-100); Potassium 5.2 mmoL/L (3.5-5.1); Sodium 138 mmol/L (136-145); Total Protein,Serum 7.4 g/dl (6.3-8.2)
[2021-03-14 06:53] LABS: Lymphocytes % 20 % (10-50); Monocytes % 4 % (2-9); Neutrophils % 76 % (42-76); Total Cells Counted 100
[2021-03-14 06:55] LABS: Platelet Estimate Slight Increase; RBC Morphology Normal
[2021-03-14 08:22] VITALS: BP 142/71; PULSE 67; RESP 16; TEMP 36.9; O2SAT 98
== END 2021-03-14 08:25 | disposition home or self-care (01) ==
PROVIDERS: Emergency Provider Emergency Medicine; PCP Internal Medicine Adolescent Medicine
DX: N23 Unspecified renal colic (principal); N28.9 Disorder of kidney and ureter, unspecified; E11.65 Type 2 diabetes mellitus with hyperglycemia; K21.9 Gastro-esophageal reflux disease without esophagitis; E78.5 Hyperlipidemia, unspecified; I10 Essential (primary) hypertension; J45.909 Unspecified asthma, uncomplicated; Z88.2 Allergy status to sulfonamides; Z79.899 Other long term (current) drug therapy
CPT/HCPCS: 74176; 80053; 81001; 85007; 85025; 87086; 96365; 96375; 99283; J2405

== ENCOUNTER → 2021-03-18 14:46 | Outpatient (CLI) | payer OTHER, SELFPAY ==
--- NOTE | 2021-03-18 14:49 | XR_ITS ---
PROCEDURE: XR KUB CLINICAL INDICATION: KIDNEY STONE COMPARISON: CR KUB KUB (SINGLE VIEW) from 03/11/[address] ABDOMEN PELVIS WO CON from 03/14/2021 FINDINGS: There are multiple pelvic calcifications which may be due to phleboliths. These have a similar appearance when compared to 03/11/2016. Postsurgical changes lumbar spine. Prior cholecystectomy. IMPRESSION: Multiple bilateral pelvic calcifications which may be due to phleboliths. Dictated by: Angel Ramirez MD 03/18/2021 16:29 Angel Ramirez MD in [place] 03/18/2021 16:29
== END ==
PROVIDERS: PCP Internal Medicine Adolescent Medicine; Visit Provider Urology
DX: N20.0 Calculus of kidney (principal); B96.1 Klebsiella pneumoniae [K. pneumoniae] as the cause of diseases classified elsewhere
CPT/HCPCS: 74018; 87086; 87088; 87186

== ENCOUNTER → 2021-04-15 10:29 | Outpatient (CLI) | payer OTHER, SELFPAY ==
[2021-04-15 11:02] LABS: Creatinine,Urine Random 132 mg/dL (Not Estab.); Microalbumin/Creatinine Ratio 9.8
[2021-04-15 12:00] LABS: Alanine Aminotransferase 26 U/L (12-78); Albumin Level 4.4 g/dl (3.5-5.0); Albumin/Globulin Ratio 1.8 (1.1-1.8); Alkaline Phosphatase 39 U/L (38-126); Anion Gap 15.7 mEq/L (5-15); Aspartate Amino Transferase 31 U/L (14-36); Bilirubin,Total 0.4 mg/dl (0.2-1.3); Blood Urea Nitrogen 32 mg/dl (7-17); Calcium 9.5 mg/dl (8.4-10.2); Carbon Dioxide 28 mmol/L (22.0-30.0); Chloride 103 mmol/L (98-107); Estimated Glomerular Filt Rate 39 ml/min (>60); GFR (African American) 47 ML/MIN (>60); Globulin 2.5 g/dL (1.3-3.2); Glucose 145 mg/dl (74-100); Potassium 4.7 mmoL/L (3.5-5.1); Sodium 142 mmol/L (136-145); Total Protein,Serum 6.9 g/dl (6.3-8.2)
[2021-04-15 13:27] LABS: Hemoglobin A1C 7.2 % (4.0-6.0)
== END ==
PROVIDERS: PCP Internal Medicine Adolescent Medicine; Visit Provider Internal Medicine Adolescent Medicine
DX: E11.9 Type 2 diabetes mellitus without complications (principal); Z79.4 Long term (current) use of insulin
CPT/HCPCS: 36415; 80053; 82043; 82570; 83036

== ENCOUNTER → 2021-05-20 08:24 | Outpatient (CLI) | payer OTHER, SELFPAY ==
--- NOTE | 2021-05-20 08:26 | MM_ITS ---
PROCEDURE INFORMATION: Exam: MG Bilateral Screening 3D Mammography Exam date and time: 05/20/2021 8:26 AM Age: 56 years old Clinical indication: screening mammogram TECHNIQUE: Imaging protocol: Bilateral Screening tomosynthesis and 2D mammography including computer-aided detection (CAD) when performed. COMPARISON: 1. MG MM DIG SCREENING MAMM BI W/CAD 03/19/2020 3:40 PM 2. MG MM DIG SCREENING MAMM BI W/CAD 02/02/2019 5:59 PM 3. MG SCBI MM Dig screening mamm BI w/CAD 01/11/2018 10:32 AM 4. MG DMSB DIG MAMM-SCREEN JOSE JUAN W/CAD 09/26/2016 11:16 AM FINDINGS: MAMMOGRAPHY: Breast composition: There are scattered areas of fibroglandular density. Mass: None. Architectural distortion: No new or suspicious architectural distortion. Calcifications: No new or suspicious calcifications are present Asymmetric density: No new or suspicious asymmetric density is present Skin thickening: None. Axillary adenopathy: None. Other findings: This is stable postoperative findings on the right IMPRESSION: No mammographic evidence of malignancy. Recommend annual screening mammography unless otherwise clinically indicated. ASSESSMENT: BI-RADS category 2: Benign
--- NOTE | 2021-05-20 09:15 | XR_ITS ---
FINAL REPORT TECHNIQUE: Bone densitometry calculations of the lumbar spine and left hip were obtained. CLINICAL HISTORY: . post menopausal FINDINGS: Using the distal 1/3 of left forearm, the bone mineral density of the forearm is 0.740 g/cm2, corresponding to T-score of 0.8. Using the left hip, the bone mineral density of the femoral neck is 0.990 g/cm2, corresponding to a T-score of 1.3. IMPRESSION: Normal bone mineral density of the left forearm and hip. Reviewed, Interpreted and Dictated by Jaspal Tian III, MD Transcribed by Lily Brush Authenticated by Jaspal Tian III, MD on 05/20/2021 11:08:02 AM [facility]
== END ==
PROVIDERS: PCP Internal Medicine Adolescent Medicine; Visit Provider Internal Medicine Adolescent Medicine
DX: Z12.31 Encounter for screening mammogram for malignant neoplasm of breast (principal); Z13.820 Encounter for screening for osteoporosis; Z78.0 Asymptomatic menopausal state
CPT/HCPCS: 77063; 77067; 77080

== ENCOUNTER 2021-07-05 16:30 | Outpatient (RCR) | payer OTHER, SELFPAY | END 2021-07-05 16:35 | disposition home or self-care (01) | LOC: PT 16:30 | PROVIDERS: PCP Internal Medicine Adolescent Medicine; Visit Provider Orthopaedic Surgery Adult Reconstructive Orthopaedic Surgery | DX: M76.11 Psoas tendinitis, right hip (principal) | CPT/HCPCS: 97010; 97014; 97110; 97140; 97163; 97164; G0283 ==

== ENCOUNTER → 2021-08-06 08:30 | Outpatient (CLI) | payer OTHER, SELFPAY ==
--- NOTE | 2021-08-06 08:35 | XR_ITS ---
FINAL REPORT CLINICAL HISTORY: urinary retention COMPARISON: March 18, 2021 FINDINGS: SINGLE VIEW ABDOMEN A single view of the abdomen was obtained. There is a nonobstructive bowel gas pattern. There are no abnormally dilated loops of small bowel. No abnormal calcifications are identified. There is a moderate amount of retained stool. There is fusion of the lower lumbar spine. There are degenerative changes of the lower lumbar spine and hips. IMPRESSION: Nonobstructive bowel gas pattern. Reviewed, Interpreted and Dictated by Jaspal Tian III, MD Transcribed by Ganesh Sparrow Authenticated by Jaspal Tian III, MD on 08/06/2021 09:35:21 AM [facility]
--- NOTE | 2021-08-06 10:47 | CT_ITS ---
FINAL REPORT CLINICAL HISTORY: kidney stone, unable to urinate x2 days, nausea, vomiting. hx kidney stones COMPARISON: March 14, 2021 FINDINGS: Axial CT images of the abdomen and pelvis were obtained without intravenous contrast. Coronal reformatted images were also obtained.This study was performed with techniques to keep radiation doses as low as reasonably achievable (ALARA). Individualized dose reduction techniques using automated exposure control or adjustment of mA and/or kV according to the patient's size were employed. Abdomen: There is mild scarring in the right lung base. There is a stable 3 mm nodule in the left lower lobe. There is no evidence of renal stone or hydronephrosis. There has been cholecystectomy. The liver, spleen and pancreas have an unremarkable, unenhanced appearance. No mass or adenopathy is seen. No inflammatory process is identified. Pelvis: Images of the pelvis reveal no evidence of ureteral dilation or ureteral stone.No mass or abnormal fluid collection is identified. The appendix is normal. There has been fusion of L4-L5. IMPRESSION: No renal or ureteral stone, or hydronephrosis. No mass or inflammatory process. Reviewed, Interpreted and Dictated by Jaspal Tian III, MD Transcribed by Ganesh Sparrow Authenticated by Jaspal Tian III, MD on 08/06/2021 12:40:51 PM [facility]
== END ==
PROVIDERS: PCP Internal Medicine Adolescent Medicine; Visit Provider Urology
DX: R33.9 Retention of urine, unspecified (principal); N20.0 Calculus of kidney
CPT/HCPCS: 74018; 74176

== ENCOUNTER 2021-08-08 09:06 | Emergency (ER) | payer OTHER, SELFPAY ==
--- NOTE | 2021-08-08 09:10 | PC.NURSE ---
PEYMAN Garcia at BS
[2021-08-08 09:16] VITALS: BP 159/72; PULSE 68; RESP 18; TEMP 36.9; O2SAT 100; BMI 45.7
--- NOTE | 2021-08-08 09:18 | PC.NURSE ---
ED MD at
[2021-08-08 09:34] LABS: Basophils # 0.1 K/mm3 (0-0.2); Basophils % 0.3 % (0.1-2.0); Eosinophils # 0.2 K/mm3 (0.0-0.4); Eosinophils % 1.1 % (0.1-12.0); Hematocrit 32.9 % (37.0-47.0); Hemoglobin 10.9 g/dL (12.2-16.2); Lymphocytes # 1.7 K/mm3 (0.7-4.5); Lymphocytes % 12.1 % (10-50); Mean Corpuscular HGB Conc 33.1 g/dL (31.8-35.4); Mean Corpuscular Hemoglobin 28.7 pg (27.0-31.2); Mean Corpuscular Volume 86.8 fl (81-99); Mean Platelet Volume 7.9 fl (7.4-10.4); Monocytes # 0.5 K/mm3 (0.1-1.0); Monocytes % 3.9 % (1.7-9.3); Neutrophils # 11.5 K/mm3 (1.8-7.8); Neutrophils % 82.6 % (37.0-80.0); Platelet Count 554 K/mm3 (142-424); Red Blood Count 3.79 M/mm3 (4.20-5.40); White Blood Count 13.9 K/mm3 (4.8-10.8)
[2021-08-08 09:39] LABS: Chloride 105 mmol/L (98-107)
[2021-08-08 09:40] LABS: Sodium 140 mmol/L (136-145)
[2021-08-08 09:42] LABS: Alanine Aminotransferase 19 U/L (12-78); Alkaline Phosphatase 58 U/L (38-126); Aspartate Amino Transferase 31 U/L (14-36); Bilirubin,Total 0.6 mg/dl (0.2-1.3); Carbon Dioxide 16 mmol/L (22.0-30.0); Lipase 454 U/L (23-300)
[2021-08-08 09:43] LABS: Albumin Level 4.1 g/dl (3.5-5.0); Albumin/Globulin Ratio 1.5 (1.1-1.8); Calcium 9.2 mg/dl (8.4-10.2); Globulin 2.7 g/dL (1.3-3.2); Glucose 101 mg/dl (74-100); Total Protein,Serum 6.8 g/dl (6.3-8.2)
[2021-08-08 09:53] LABS: Creatinine Clearance Estimated 6 mL/min (50-200); Estimated Glomerular Filt Rate 5 ml/min (>60); GFR (African American) 6 ML/MIN (>60)
[2021-08-08 09:54] LABS: Lactic Acid 1.3 mmol/L (0.7-2.1)
[2021-08-08 10:05] LABS: Blood Urea Nitrogen 101 mg/dl (7-17)
--- NOTE | 2021-08-08 10:09 | PC.NURSE ---
PEYMAN Garcia at BS
[2021-08-08 10:16] LABS: Coronavirus 19, PCR Not Detected (NotDetected); Influenza A, PCR Not Detected (NotDetected); Influenza B, PCR Not Detected (NotDetected)
--- NOTE | 2021-08-08 10:21 | PC.NURSE ---
patient in restroom
--- NOTE | 2021-08-08 10:37 | PC.NURSE ---
waiting bail bonding agent back from Dr. Islas, staff states is in a room
--- NOTE | 2021-08-08 10:45 | PC.NURSE ---
MARK CONN speaking with Dr. Islas
--- NOTE | 2021-08-08 10:54 | PC.NURSE ---
Contacting [facility] for possible patient transfer
[2021-08-08 10:56] VITALS: BP 145/59; PULSE 65; RESP 18; O2SAT 98
--- NOTE | 2021-08-08 11:01 | PC.NURSE ---
ED MD on phone with MD[facility]
[2021-08-08 11:09] LABS: Alanine Aminotransferase 19 U/L (12-78); Albumin/Globulin Ratio 1.6 (1.1-1.8); Alkaline Phosphatase 45 U/L (38-126); Anion Gap 22.9 mEq/L (5-15); Aspartate Amino Transferase 27 U/L (14-36); Bilirubin,Total 0.5 mg/dl (0.2-1.3); Calcium 8.8 mg/dl (8.4-10.2); Carbon Dioxide 18 mmol/L (22.0-30.0); Chloride 105 mmol/L (98-107); Globulin 2.5 g/dL (1.3-3.2); Glucose 101 mg/dl (74-100); Potassium 5.9 mmoL/L (3.5-5.1); Sodium 140 mmol/L (136-145); Total Protein,Serum 6.5 g/dl (6.3-8.2)
--- NOTE | 2021-08-08 11:10 | PC.NURSE ---
Contacting [facility] for possible patient transfer
--- NOTE | 2021-08-08 11:12 | PC.NURSE ---
Ed MD on phone with [facility]
[2021-08-08 11:15] LABS: Creatinine Clearance Estimated 6 mL/min (50-200); Estimated Glomerular Filt Rate 5 ml/min (>60); GFR (African American) 6 ML/MIN (>60)
[2021-08-08 11:18] LABS: Blood Urea Nitrogen 105 mg/dl (7-17)
--- NOTE | 2021-08-08 11:18 | ECG_ITS ---
APPROVED REPORT Exam: Resting ECG HR:68 bpm ECG Measurements Heart Rate 68 AXES SD 174 P 54 QRSd 91 QRS -1 QT 417 T 29 QTc 434 Conclusion SINUS RHYTHM NORMAL ECG UNCONFIRMED REPORT Electronically signed by : Edwin Islas MD 08/10/2021 09:07:32
--- NOTE | 2021-08-08 11:19 | PC.NURSE ---
ED MD at speaking with patient regarding POC
--- NOTE | 2021-08-08 11:27 | HMH.EDGENADL ---
ED Disposition Clinical Impression: KENY (acute kidney injury) Disposition: Xfer Critical Access Hosp Condition on Discharge: Fair Instructions: DI for Diarrhea and Traveler's Diarrhea -- Adult, DI for Diarrhea and Traveler's Diarrhea -- Child, DI for Nausea -- Adult, DI for Nausea -- Child Referrals: Edwin Islas MD [Primary Care Provider] - - Critical Care Critical Care Time: No Attestation: On 08/08/21, the high probability of a clinically significant, sudden or life threatening deterioration of the following system(s) required my full and direct attention, intervention and personal management. The time I documented below is in addition to time spent performing reported procedures but includes the following listed in this critical care notation. Medical Decision Making - Medical Records Medical records reviewed: Yes: I reviewed the patient's medical records. - Fareed Inquiry Pt receiving controlled substance: Yes Fareed was queried for this patient: No Risks and benefits of using a controlled substance: were discussed with pt by me Vital Signs: 08/08/21 09:16 08/08/21 10:56 Temperature 98.4 F Temperature Source Oral Pulse Rate 65 Pulse Rate [Left Radial] 68 Respiratory Rate 18 18 Blood Pressure 145/59 H Blood Pressure [Right Arm] 159/72 H Blood Pressure Mean [Right Arm] 101 Blood Pressure Position Sitting 02 Sat by Pulse Oximetry 100 98 Oxygen Delivery Method Room Air Room Air - Lab Data Lab results reviewed: Yes: I reviewed the patient's lab results. Lab Results 08/08/21 09:20: WBC 13.9 H, RBC 3.79 L, Hgb 10.9 L, Hct 32.9 L, MCV 86.8, MCH 28.7, MCHC 33.1, RDW 16.0, Plt Count 554 H, MPV 7.9, Neut % (Auto) 82.6 H, Lymph % (Auto) 12.1, [place] % (Auto) 3.9, Eos % (Auto) 1.1, Baso % (Auto) 0.3, Neut # (Auto) 11.5 H, Lymph # (Auto) 1.7, [place] # (Auto) 0.5, Eos # (Auto) 0.2, Baso # (Auto) 0.1 08/08/21 09:20: Sodium 140, Potassium 6.0 H, Chloride 105, Carbon Dioxide 16 L, Anion Gap 25.0 H, BUN 101 H*, Creatinine 8.50 H, Estimated Creat Clear 6, Estimated GFR 5 L*, Est GFR ( Amer) 6 L*, Glucose 101 H, Calcium 9.2, Total Bilirubin 0.6, AST 31, ALT 19, Alkaline Phosphatase 58, Total Protein 6.8, Albumin 4.1, Globulin 2.7, Albumin/Globulin Ratio 1.5 08/08/21 09:20: Lipase 454 H 08/08/21 09:39: Lactate 1.3 08/08/21 10:08: SARS-CoV-2 (PCR) Not detected, Influenza A Untype (PCR) Not detected, Influenza Type B (PCR) Not detected 08/08/21 10:55: Sodium 140, Potassium 5.9 H, Chloride 105, Carbon Dioxide 18 L, Anion Gap 22.9 H, BUN 105 H*, Creatinine 8.20 H, Estimated Creat Clear 6, Estimated GFR 5 L*, Est GFR ( Amer) 6 L*, Glucose 101 H, Calcium 8.8, Total Bilirubin 0.5, AST 27, ALT 19, Alkaline Phosphatase 45, Total Protein 6.5, Albumin 4.0, Globulin 2.5, Albumin/Globulin Ratio 1.6 Result diagrams: 08/08/21 09:20 08/08/21 10:55 Orders (Tests/Meds): ED MEDICATIONS Discontinued Medications Generic Name Dose Route Start Last Admin Trade Name Freq PRN Reason Stop Dose Admin Lactated Ringer's 1,000 mls @ 999 mls/hr 08/08/21 09:30 08/08/21 09:30 Lactated Ringer's 1000 Ml Bag IV 08/08/21 10:30 999 mls/hr .Q1H1M SCOTTY Administration Morphine Sulfate 4 mg 08/08/21 09:21 08/08/21 09:27 Morphine 4mg/Ml Syringe IV 08/08/21 09:22 4 mg ONCE ONE Administration Ondansetron HCl 4 mg 08/08/21 09:20 08/08/21 09:27 Ondansetron 4mg/2ml Vial IV 08/08/21 09:21 4 mg ONCE ONE Administration ORDERS Category Date Time Status Urinalysis and Microscopic Stat Lab 08/08/21 09:20 Ordered Medical Decision Narrative: Patient is a 56-year-old female with medical history of kidney stones presenting to the ED for nausea and vomiting. Patient is awake, alert, not in acute distress. Patient is medically stable, afebrile. Patient's physical exam is remarkable for mild tenderness to palpation of the umbilicus otherwise benign. Differential includes but not limited to viral gastr
--- NOTE | 2021-08-08 11:48 | PC.NURSE ---
pt moved to room 7 to a more comfortable bed. at . TV remote provided to pt. Pt sitting up on the side of the bed at this time per her request. Updated pt we are waiting on a bed assignment at [facility] as they have notified us they want pt in the ICU and do not have an ICU bed available at this time. Will continue to monitor.
[2021-08-08 12:00] VITALS: BP 164/68; PULSE 67; O2SAT 99
[2021-08-08 12:01] LABS: VBG Base Excess -11.2 mmol/L (-2.4-2.3); VBG HCO3 16.4 mmol/L (23-30); VBG Oxygen Saturation 78.1 % (50-70); VBG PCO2 40.3 mmol/L (35-51); VBG PH 7.23 mmol/L (7.31-7.41); VBG PO2 49.5 mmol/L (28-40); VBG Total CO2 17.6 mmol/L (23-27)
--- NOTE | 2021-08-08 13:01 | PC.NURSE ---
pt ambulated to restroom and back independently, pt was able to urinate and provide urine specimen. Urine specimen to lab pt given warm blanket, call light within reach. Will continue to monitor.
[2021-08-08 13:04] LABS: Microscopic, Urine URINE MICROSCOPIC (MICROSCOPIC)
[2021-08-08 13:06] LABS: Appearance,Urine CLEAR (Clear); Bilirubin,Urine Negative (Negative); Blood, Urine 1+ (Negative); Color,Urine STRAW (Yellow); Glucose,Urine (UA) Negative (Negative); Ketones,Urine Negative (Negative); Leukocyte Esterase,Urine Negative (Negative); Nitrate,Urine Negative (Negative); Protein,Urine Negative (Negative); Specific Gravity, Urine <= 1.005 (1.005-1.030); Urobilinogen,Urine 0.2 EU/dl (0.2)
[2021-08-08 13:18] LABS: Bacteria,Urine Trace /lpf
[2021-08-08 13:19] LABS: Squamous Epithelial Cell,Urine Occasional #/hpf (0-5); WBC,Urine Occasional #/hpf (0-3)
--- NOTE | 2021-08-08 13:31 | PC.NURSE ---
Access center called with bed assignment for patient. patient updated on POC.
[2021-08-08 15:04] VITALS: BP 150/78; PULSE 81; RESP 20; TEMP 36.8; O2SAT 99
== END 2021-08-08 15:06 | disposition critical access hospital (66) ==
PROVIDERS: Emergency Provider Emergency Medicine; PCP Internal Medicine Adolescent Medicine
DX: N17.9 Acute kidney failure, unspecified (principal); E87.5 Hyperkalemia; E78.5 Hyperlipidemia, unspecified; E11.9 Type 2 diabetes mellitus without complications; I10 Essential (primary) hypertension; F33.1 Major depressive disorder, recurrent, moderate; Z79.899 Other long term (current) drug therapy
CPT/HCPCS: 80053; 81001; 82803; 83605; 83690; 85025; 93005; 96360; 96375; 99284; C9803; J2405; U0003; U0005

== ENCOUNTER → 2022-01-06 13:05 | Outpatient (CLI) | payer OTHER, SELFPAY ==
[2022-01-06 14:52] LABS: Hemoglobin A1C 7.7 % (4.0-6.0)
[2022-01-06 15:00] LABS: Alanine Aminotransferase 21 U/L (12-78); Albumin Level 4.1 g/dl (3.5-5.0); Albumin/Globulin Ratio 1.5 (1.1-1.8); Alkaline Phosphatase 77 U/L (38-126); Anion Gap 16.1 mEq/L (5-15); Aspartate Amino Transferase 25 U/L (14-36); Bilirubin,Total < 0.1 mg/dl (0.2-1.3); Blood Urea Nitrogen 22 mg/dl (7-17); Calcium 9.3 mg/dl (8.4-10.2); Carbon Dioxide 26 mmol/L (22.0-30.0); Chloride 101 mmol/L (98-107); Estimated Glomerular Filt Rate 47 ml/min (>60); GFR (African American) 56 ML/MIN (>60); Globulin 2.7 g/dL (1.3-3.2); Glucose 165 mg/dl (74-100); Potassium 5.1 mmoL/L (3.5-5.1); Sodium 138 mmol/L (136-145); Total Protein,Serum 6.8 g/dl (6.3-8.2)
[2022-01-06 15:49] LABS: Vitamin B12 713 pg/mL (239-931)
== END ==
PROVIDERS: PCP Internal Medicine Adolescent Medicine; Visit Provider Internal Medicine Adolescent Medicine
DX: E11.9 Type 2 diabetes mellitus without complications (principal); N17.9 Acute kidney failure, unspecified; Z79.4 Long term (current) use of insulin
CPT/HCPCS: 36415; 80053; 82607; 83036

== ENCOUNTER → 2022-06-11 07:21 | Outpatient (CLI) | payer OTHER, SELFPAY ==
[2022-06-11 07:27] LABS: Microscopic, Urine URINE MICROSCOPIC (MICROSCOPIC)
[2022-06-11 07:50] LABS: Basophils # 0.1 K/mm3 (0-0.2); Basophils % 1.4 % (0.1-2.0); Eosinophils # 0.2 K/mm3 (0.0-0.4); Eosinophils % 2.5 % (0.1-12.0); Hematocrit 41.3 % (37.0-47.0); Hemoglobin 12.7 g/dL (12.2-16.2); Lymphocytes # 2.7 K/mm3 (0.7-4.5); Lymphocytes % 27.1 % (10-50); Mean Corpuscular HGB Conc 30.8 g/dL (31.8-35.4); Mean Corpuscular Hemoglobin 26.9 pg (27.0-31.2); Mean Corpuscular Volume 87.5 fl (81-99); Mean Platelet Volume 8.5 fl (7.4-10.4); Monocytes # 0.4 K/mm3 (0.1-1.0); Monocytes % 4.1 % (1.7-9.3); Neutrophils # 6.3 K/mm3 (1.8-7.8); Neutrophils % 64.9 % (37.0-80.0); Platelet Count 460 K/mm3 (142-424); Red Blood Count 4.72 M/mm3 (4.20-5.40); Red Cell Distribution Width 16.8 % (11.5-17.5); White Blood Count 9.8 K/mm3 (4.8-10.8)
[2022-06-11 07:58] LABS: Appearance,Urine CLEAR (Clear); Bilirubin,Urine Negative (Negative); Blood, Urine Negative (Negative); Color,Urine YELLOW (Yellow); Glucose,Urine (UA) Negative (Negative); Ketones,Urine Negative (Negative); Leukocyte Esterase,Urine Negative (Negative); Nitrate,Urine Negative (Negative); PH,Urine 5.5 (5.0-8.5); Protein,Urine Negative (Negative); Specific Gravity, Urine 1.025 (1.005-1.030); Urobilinogen,Urine 0.2 EU/dl (0.2)
[2022-06-11 08:22] LABS: Bacteria,Urine Trace /lpf
[2022-06-11 08:32] LABS: Alanine Aminotransferase 24 U/L (12-78); Albumin Level 4.3 g/dl (3.5-5.0); Albumin/Globulin Ratio 1.7 (1.1-1.8); Alkaline Phosphatase 74 U/L (38-126); Anion Gap 11.7 mEq/L (5-15); Aspartate Amino Transferase 25 U/L (14-36); Bilirubin,Total 0.5 mg/dl (0.2-1.3); Blood Urea Nitrogen 22 mg/dl (7-17); Calcium 9.2 mg/dl (8.4-10.2); Carbon Dioxide 26 mmol/L (22.0-30.0); Chloride 103 mmol/L (98-107); Estimated Glomerular Filt Rate 47 ml/min (>60); GFR (African American) 56 ML/MIN (>60); Globulin 2.6 g/dL (1.3-3.2); Glucose 216 mg/dl (74-100); Potassium 4.7 mmoL/L (3.5-5.1); Sodium 136 mmol/L (136-145); Total Protein,Serum 6.9 g/dl (6.3-8.2)
== END ==
PROVIDERS: PCP Internal Medicine Adolescent Medicine; Visit Provider Orthopaedic Surgery
DX: Z01.818 Encounter for other preprocedural examination (principal)
CPT/HCPCS: 36415; 80053; 81001; 85025

== ENCOUNTER 2022-07-25 08:58 | Day surgery (SDC) | payer OTHER, SELFPAY ==
[2022-07-23 10:26] VITALS: BMI 44.2
[2022-07-25 09:52] VITALS: BP 142/75; PULSE 71; RESP 18; TEMP 36.2; O2SAT 97
--- NOTE | 2022-07-25 10:34 | EXP.ANES.CKL ---
[facility] Disclaimer: The information contained in this section may have been updated after the patient was seen, as this information can be updated by other users. Medical History Acute kidney injury Asthma Diabetes GERD (gastroesophageal reflux disease) HLD (hyperlipidemia) HTN (hypertension) Surgical History History of bladder surgery History of lumbar surgery Family History Other Family history of diabetes mellitus Family history of heart disease Family history of kidney disease Family history of thrombocytopenia Social History Smoking Status: Never smoker alcohol intake: never substance use type: denies use current occupational status: employed Travel in the last 8 weeks: None household members: spouse housing: house current occupational exposures/hazards: Yes caffeine: Yes [facility] Anesthesia Checklist Patient Identification Patient Identification: Arm Band Structural Data Admitted From: Home Planned Operative Procedure/s: Right Carpal Tunnel Release Consent for Planned Operative Procedure(s) Verified: Yes Verified Documents: Surgical Consent and History and Physical NPO Status Verified Time NPO: 00:00 Additional verifications Anesthesia Reactions: Yes (DUE TO VERSED) Hx Blood Transfusions: No Blood Transfusion Reaction: No Airway Assessment C-Spine Mobility Assessed: Yes TMJ Mobility Assessed: Yes Dentition: Good Dentition Neurological Assessment Level of Consciousness: Awake and Alert Anesthesia Plan Anesthesia Risk discussed: Yes Anesthesia Plan: Verified ASA Class: III Anesthesia Type: MAC
[2022-07-25 13:34] VITALS: BP 155/79; PULSE 65; RESP 15; TEMP 36.2; O2SAT 99
[2022-07-25 13:44] VITALS: BP 154/95; PULSE 81; RESP 16; O2SAT 99
[2022-07-25 13:54] VITALS: BP 159/71; PULSE 68; RESP 17; O2SAT 95
[2022-07-25 14:04] VITALS: BP 150/98; PULSE 68; RESP 16; O2SAT 96
--- NOTE | 2022-07-25 14:09 | P.OP_ITS ---
Date of procedure: 07/25/22 Pre-op Diagnosis:: Right carpal tunnel syndrome Post-op Diagnosis:: Same Procedure performed:: 16920: Right endoscopic carpal tunnel release Surgeon:: Hoang Saxena JR, MD Anesthesia: MAC Estimated blood loss (mL): 3 Clinical Note:: 57-year-old female with right carpal tunnel syndrome. She had failed prior conservative measures. She had nerve type pain that was waking her up at night. She was interested in more durable intervention. I recommended right end oscopic carpal tunnel release. She was amenable with the plan. We discussed the risk and benefits of surgery. Risks included but were not limited to pain, bleeding, infection, damage to adjacent structures, need for further surgery, wound healing complications, loss of limb, . Patient expressed verbal consent and written consent was obtained for the above procedure. Operative findings:: Transverse carpal ligament release confirmed endoscopically, via palpation and direct visualization Operative note:: Patient was identified in preoperative holding. Operative site was marked in indelible ink. History, physical, consent were reviewed and updated. Patient was surrendered to the anesthesia team, taken to the operative suite, placed supine on a well-padded operative table. A nonsterile tourniquet placed on the proximal brachium. Anesthesia was induced. The operative extremity was prepped and draped in the usual sterile fashion. The operative team donned sterile gowns and gloves and a timeout was called. All in attendance agreed regarding the patient's identity, procedure, operative site. Weight-based dose of antibiotics was given prior to incision. I made a transverse incision at the proximal wrist crease proximal to the transverse carpal ligament. I bluntly dissected through skin and subcutaneous tissue with care taken to avoid injuring the palmaris longus. I transected the fascia, inserted a dilating probe deep to the transverse carpal ligament and noted its depth distal to the transverse carpal ligament. I then inserted a cannula and scope, visualize the fibers of the transverse carpal ligament. I took to the distal aspect of the transverse carpal ligament to confirm its location, then with a curved blade under endoscopic visualization, transected the fibers of the transverse carpal ligament and noted that they retracted medially and laterally. I removed the cannula, achieved hemostasis, closed with Monocryl, Prineo and Dermabond. Dressings were applied. Counts were correct x2. There were no apparent complications. I was present scrubbed for the entire case. Postoperatively, plan to leave dressing in place for 5 days, then remove all but Prineo. Okay to shower but do not soak wound at that point. Finger mobility, limit weightbearing to 10 pounds until follow-up in 2 weeks at which point I anticipate initiating physical therapy. Condition: stable Disposition: PACU Specimens:: None Complications:: None apparent
[2022-07-26 06:51] LABS: POC Glucose,Bedside 175 (70-110)
== END 2022-07-25 14:15 | disposition home or self-care (01) ==
PROVIDERS: PCP Internal Medicine Adolescent Medicine; Visit Provider Orthopaedic Surgery
PROC: (CPT 64721; principal; 2022-07-25 09:30)
DX: G56.01 Carpal tunnel syndrome, right upper limb (principal); E11.9 Type 2 diabetes mellitus without complications; Z79.4 Long term (current) use of insulin; Z79.899 Other long term (current) drug therapy
CPT/HCPCS: 64721; 82962; 96374

== ENCOUNTER → 2022-09-16 07:16 | Outpatient (CLI) | payer OTHER, SELFPAY ==
--- NOTE | 2022-09-16 07:28 | XR_ITS ---
FINAL REPORT CLINICAL HISTORY: foot pain COMPARISON: September 2016 FINDINGS: 3 views of the left foot were obtained. There is no acute fracture or dislocation. There are mild degenerative changes. There is a plantar calcaneal spur. There is a chronic calcification medial to the distal talus. There is a chronic calcification inferior to the lateral malleolus. IMPRESSION: Mild degenerative change. Reviewed, Interpreted and Dictated by Jaspal Tian III, MD Transcribed by Ganesh Sparrow Authenticated and . [facility]
--- NOTE | 2022-09-16 07:28 | XR_ITS ---
FINAL REPORT CLINICAL HISTORY: Lt knee pain FINDINGS: 3 views of the left knee were obtained. There is no acute fracture or dislocation. There are mild and moderate degenerative changes. There is mild medial compartment joint space narrowing. A small joint effusion is present. IMPRESSION: Mild degenerative changes with a small joint effusion. Reviewed, Interpreted and Dictated by Jaspal Tian III, MD Transcribed by Ganesh Sparrow Authenticated and . [facility]
--- NOTE | 2022-09-16 07:28 | XR_ITS ---
FINAL REPORT CLINICAL HISTORY: foot pain COMPARISON: September 2016 FINDINGS: 3 views of the right foot were obtained. There is no acute fracture or dislocation. There are mild degenerative changes. There is a plantar calcaneal spur. There is a chronic calcification medial to the distal talus. IMPRESSION: Mild degenerative change. Reviewed, Interpreted and Dictated by Jaspal Tian III, MD Transcribed by Ganesh Sparrow Authenticated and [facility]
[2022-09-16 09:13] LABS: Basophils # 0.1 K/mm3 (0-0.2); Basophils % 0.5 % (0.1-2.0); Eosinophils # 0.3 K/mm3 (0.0-0.4); Eosinophils % 2.5 % (0.1-12.0); Hematocrit 42.3 % (37.0-47.0); Lymphocytes # 2.8 K/mm3 (0.7-4.5); Lymphocytes % 28.3 % (10-50); Mean Corpuscular HGB Conc 30.7 g/dL (31.8-35.4); Mean Corpuscular Hemoglobin 26.8 pg (27.0-31.2); Mean Corpuscular Volume 87.2 fl (81-99); Mean Platelet Volume 8.4 fl (7.4-10.4); Monocytes # 0.4 K/mm3 (0.1-1.0); Monocytes % 4.1 % (1.7-9.3); Neutrophils # 6.5 K/mm3 (1.8-7.8); Neutrophils % 64.6 % (37.0-80.0); Platelet Count 444 K/mm3 (142-424); Red Blood Count 4.85 M/mm3 (4.20-5.40); Red Cell Distribution Width 15.9 % (11.5-17.5)
[2022-09-16 09:25] LABS: Alanine Aminotransferase 32 U/L (12-78); Albumin Level 4.1 g/dl (3.5-5.0); Albumin/Globulin Ratio 1.5 (1.1-1.8); Alkaline Phosphatase 75 U/L (38-126); Anion Gap 18.7 mEq/L (5-15); Aspartate Amino Transferase 32 U/L (14-36); Bilirubin,Total 0.4 mg/dl (0.2-1.3); Blood Urea Nitrogen 22 mg/dl (7-17); Calcium 9.4 mg/dl (8.4-10.2); Carbon Dioxide 23 mmol/L (22.0-30.0); Chloride 103 mmol/L (98-107); Chol/HDL Ratio 5.7 (1-3.5); Cholesterol 272 mg/dl (140-200); Estimated Glomerular Filt Rate 52 ml/min (>60); GFR (African American) 62 ML/MIN (>60); Globulin 2.7 g/dL (1.3-3.2); Glucose 220 mg/dl (74-100); HDL Cholesterol 48 mg/dl (40-60); Potassium 4.7 mmoL/L (3.5-5.1); Sodium 140 mmol/L (136-145); Total Protein,Serum 6.8 g/dl (6.3-8.2); Triglycerides 357 mg/dl (30-150); VLDL Cholesterol 71 mg/dL (0-40)
[2022-09-16 09:34] LABS: Hemoglobin A1C 7.8 % (4.0-6.0)
[2022-09-16 09:36] LABS: Direct LDL Cholesterol 140.64 mg/dL (100-129)
[2022-09-16 09:44] LABS: 25-OH Vitamin D, Total 36.8 ng/mL (30-100)
== END ==
PROVIDERS: PCP Internal Medicine Adolescent Medicine; Visit Provider Internal Medicine Adolescent Medicine
DX: M19.071 Primary osteoarthritis, right ankle and foot (principal); M19.072 Primary osteoarthritis, left ankle and foot; M25.562 Pain in left knee; E66.01 Morbid (severe) obesity due to excess calories; Z68.42 Body mass index [BMI] 45.0-49.9, adult; E11.9 Type 2 diabetes mellitus without complications; E55.9 Vitamin D deficiency, unspecified; Z79.4 Long term (current) use of insulin
CPT/HCPCS: 36415; 73562; 73630; 80053; 80061; 82306; 83036; 85025

== ENCOUNTER 2022-12-04 15:30 | Outpatient (RCR) | payer OTHER, SELFPAY ==
--- NOTE | 2022-11-28 16:51 | HMH.PTOPEV ---
PT Outpatient Evaluation Rehab PT Outpatient Evaluation Start: 11/28/22 15:03 Freq: Status: Active Protocol: Document 11/28/22 15:03 JASMIN (Rec: 11/28/22 16:51 DAVIDSLIME [id number]) E-signed By Jo Youngblood, PT Outpatient Therapy Subjective History Subjective History Pt presents to the PT clinic with reports of L knee & R hip pain. Pt reports that she began having R hip pain 3 years ago, after her back surgery. Pt reports she is having difficulty driving due to weakness throughout her R leg. Pt reports she has a hard time lifting her R leg and feels a sharp pain in the front of her hip when she tries. Pt reports she has constant pain throughout her RLE and it is worse when she is walking. Pt reports that usually if she is able to relax with heat in a recliner it does help some. Pt reports that she had a fall in 1991 that originally injured her L knee. Pt reports she had a meniscus repair in 1998 on her L knee. Pt reports that it has continued to worsen over the past few years . Pt reports that her L knee hurts when she is walking, squatting and getting in/out of a chair. Pt reports that she received an injection in her L knee 2 weeks ago which has helped. PMH: lumbar fusion, HTN, DM2 Chief Complaint Pain,Stiff,Swelling,Gives out/ Unstable,Weakness Symptom Type Ache,Sharp,Stabbing,Shooting Symptoms Relieved By Rest/Positioning,Heat,OTC Meds Symptoms Aggravated By Sitting,Standing,Bending/ Stooping,Physical Activity, Twisting,Walking,Lifting Prior Functional Limitations None Current Functional Limitations Lifting,Housework,Dressing, Driving,Sleeping,Standing, Sitting,Squatting,Recreation Activity,Walking,Stairs,
== END 2022-12-04 15:35 | disposition home or self-care (01) ==
LOC: PT 15:30
PROVIDERS: PCP Internal Medicine Adolescent Medicine; Visit Provider Orthopaedic Surgery
DX: M25.551 Pain in right hip (principal); M17.12 Unilateral primary osteoarthritis, left knee
CPT/HCPCS: 97033; 97110; 97163

== ENCOUNTER → 2023-01-02 08:43 | Outpatient (CLI) | payer OTHER, SELFPAY ==
--- NOTE | 2023-01-02 08:43 | FL_ITS ---
FINAL REPORT CLINICAL HISTORY: dysphagia DAP 1238.62 Fluoro time 1.28 FINDINGS: ESOPHAGRAM HISTORY: Abdominal pain, nausea. PROCEDURE: The patient ingested barium. Effervescent crystals were also administered. Spot and overhead films were obtained. FINDINGS: There is a small sliding-type hiatal hernia. There is no extrinsic compression upon the esophagus. There is mild esophageal dysmotility. There is mild gastroesophageal reflux. Peristalsis is normal. IMPRESSION: 1. Small sliding type hiatal hernia. 2. Mild esophageal dysmotility. 3. Mild gastroesophageal reflux. FLUOROSCOPY TIME:1 minute 28 seconds Reference are Karma:1238.62 Films reviewed , interpreted and dictated by Dr. Destiny Jimenez. Transcribed by Walker Rodriguez PA-C. Reviewed, Interpreted and Dictated by Destiny Jimenez MD Transcribed by MICHA Orellana Authenticated and [facility]
== END ==
PROVIDERS: PCP Internal Medicine Adolescent Medicine; Visit Provider Nurse Practitioner
DX: R13.10 Dysphagia, unspecified (principal); R11.0 Nausea
CPT/HCPCS: 74220

== ENCOUNTER 2023-01-08 11:15 | Day surgery (SDC) | payer OTHER, SELFPAY ==
[2023-01-08 11:35] VITALS: BP 188/86; PULSE 69; RESP 16; TEMP 36.6; O2SAT 94; BMI 48.4
[2023-01-08 11:46] LABS: POC Glucose,Bedside 194 (70-110)
--- NOTE | 2023-01-08 11:53 | P.PNANES_ITS ---
[facility] Disclaimer: The information contained in this section may have been updated after the patient was seen, as this information can be updated by other users. Medical History Abdominal pain Acute kidney injury Asthma Diabetes GERD (gastroesophageal reflux disease) HLD (hyperlipidemia) HTN (hypertension) Surgical History History of bladder surgery History of lumbar surgery Family History Other Family history of diabetes mellitus Family history of heart disease Family history of kidney disease Family history of thrombocytopenia Social History Smoking Status: Never smoker alcohol intake: never substance use type: denies use current occupational status: employed Travel in the last 8 weeks: None household members: spouse housing: house current occupational exposures/hazards: Yes caffeine: Yes [facility] Anesthesia Checklist Patient Identification Patient Identification: Arm Band and Verbal (Name & ) Structural Data Admitted From: Home Planned Operative Procedure/s: EGD Consent for Planned Operative Procedure(s) Verified: Yes NPO Status Verified Time NPO: 00:00 Additional verifications Anesthesia Reactions: Yes (DUE TO VERSED) Hx Blood Transfusions: No Blood Transfusion Reaction: No Airway Assessment Mallampati Score:: Class IV C-Spine Mobility Assessed: Yes TMJ Mobility Assessed: Yes Dentition: Good Dentition Neurological Assessment Level of Consciousness: Awake Hx Seizures: No Numbness or tingling in extremities: No Anesthesia Plan Anesthesia Risk discussed: Yes Anesthesia Plan: Verified ASA Class: III Anesthesia Type: MAC
[2023-01-08 12:05] VITALS: O2SAT 97
--- NOTE | 2023-01-08 12:15 | HMH.SCOPE ---
Procedure: Date: 01/08/23 Patient Date of :: 1965 Procedure Performed:: EGD with dilation Indications:: Dysphagia, abdominal pain Performing Provider:: Evan Moore MD Referring Provider:: Brianna Moore APRN Sedation:: Propofol Procedure:: The gastroscope was gently passed through the incisoral orifice into the oral cavity and under direct visualization the esophagus was intubated. The endoscope was passed down the esophagus, through the stomach, and into the duodenum. Color, texture, mucosa, and anatomy of the esophagus, stomach, and duodenum were carefully examined with the scope. Findings:: Oropharynx: normal Esophagus: normal, no stricture, empiric dilation performed EG Junction: intact at 40 cm Cardia: normal Fundus: normal Body: normal Antrum: normal Duodenal bulb: normal Duodenum (second and third portion): normal, random biopsies obtained Impression: Overall normal EGD, empiric dilation performed for symptomatic dysphagia Specimens:: Small bowel Recommendations:: Follow up with PCP Complications:: None Estimated blood obtained (mL): 0 Colonoscopy Component Colonoscopy Component Was a colonoscopy performed during today's procedure?: No
[2023-01-08 12:25] VITALS: BP 115/66; PULSE 72; RESP 16; TEMP 36.1; O2SAT 92
[2023-01-08 12:35] VITALS: BP 122/75; PULSE 67; RESP 16; O2SAT 94
[2023-01-08 12:45] VITALS: BP 129/74; PULSE 68; RESP 16; O2SAT 95
[2023-01-08 13:08] VITALS: BP 143/86; PULSE 68; RESP 16; TEMP 36.4; O2SAT 95
== END 2023-01-08 13:08 | disposition home or self-care (01) ==
PROVIDERS: PCP Internal Medicine Adolescent Medicine; Visit Provider Internal Medicine Gastroenterology
PROC: 0DJ08ZZ Inspection of Upper Intestinal Tract, Via Natural or Artificial Opening Endoscopic (ICD-10-PCS; CPT 43235; principal; 2023-01-08 14:00)
DX: R13.10 Dysphagia, unspecified (principal); R10.9 Unspecified abdominal pain; E11.9 Type 2 diabetes mellitus without complications
CPT/HCPCS: 43248; 82962

== ENCOUNTER → 2023-03-12 15:49 | Outpatient (CLI) | payer OTHER, SELFPAY ==
--- NOTE | 2023-03-12 15:53 | MM_ITS ---
PROCEDURE INFORMATION: Exam: MG Bilateral Screening 3D Mammography Exam date and time: 03/12/2023 3:44 PM Age: 58 years old Clinical indication: Screening examination TECHNIQUE: Imaging protocol: Bilateral Screening tomosynthesis and 2D mammography including computer-aided detection (CAD) when performed. COMPARISON: 1. MG MM DIG SCREENING MAMM BI W/CAD 05/20/2021 8:36 AM 2. MG MM DIG SCREENING MAMM BI W/CAD 03/19/2020 3:40 PM FINDINGS: MAMMOGRAPHY: Breast composition: There are scattered areas of fibroglandular density. Mass: None. Architectural distortion: None. Calcifications: No suspicious calcifications. Asymmetric density: None. Skin thickening: None. Axillary adenopathy: None. IMPRESSION: No mammographic evidence of malignancy. Annual screening is recommended unless otherwise clinically indicated. ASSESSMENT: BI-RADS Category 1: Negative
== END ==
PROVIDERS: PCP Internal Medicine Adolescent Medicine; Visit Provider Nurse Practitioner Obstetrics & Gynecology
DX: Z12.31 Encounter for screening mammogram for malignant neoplasm of breast (principal)
CPT/HCPCS: 77063; 77067

== ENCOUNTER 2023-04-10 07:18 | Outpatient (CLI) | payer OTHER, SELFPAY ==
--- NOTE | 2023-04-10 07:20 | ECG_ITS ---
APPROVED REPORT Exam: Resting ECG HR:58 bpm ECG Measurements Heart Rate 58 AXES WI 204 P 44 QRSd 96 QRS -7 QT 411 T 39 QTc 407 Conclusion SINUS BRADYCARDIA BORDERLINE ECG UNCONFIRMED REPORT Electronically signed by : Edwin Islas MD 04/11/2023 10:06:35
[2023-04-10 08:26] LABS: Hemoglobin A1C 8.7 % (4.0-6.0)
[2023-04-10 08:49] LABS: Basophils # 0.1 K/mm3 (0-0.2); Basophils % 0.7 % (0.1-2.0); Eosinophils # 0.2 K/mm3 (0.0-0.4); Hematocrit 41.1 % (37.0-47.0); Hemoglobin 13.3 g/dL (12.2-16.2); Lymphocytes # 2.8 K/mm3 (0.7-4.5); Lymphocytes % 29.2 % (10-50); Mean Corpuscular HGB Conc 32.4 g/dL (31.8-35.4); Mean Corpuscular Hemoglobin 28.8 pg (27.0-31.2); Mean Platelet Volume 8.2 fl (7.4-10.4); Monocytes # 0.4 K/mm3 (0.1-1.0); Neutrophils % 64.1 % (37.0-80.0); Platelet Count 391 K/mm3 (142-424); Red Blood Count 4.61 M/mm3 (4.20-5.40); Red Cell Distribution Width 14.9 % (11.5-17.5); White Blood Count 9.4 K/mm3 (4.8-10.8)
[2023-04-10 08:53] LABS: Alanine Aminotransferase 29 U/L (12-78); Albumin Level 3.9 g/dl (3.5-5.0); Albumin/Globulin Ratio 1.6 (1.1-1.8); Alkaline Phosphatase 60 U/L (38-126); Anion Gap 11.5 mEq/L (5-15); Aspartate Amino Transferase 28 U/L (14-36); Bilirubin,Total 0.4 mg/dl (0.2-1.3); Blood Urea Nitrogen 19 mg/dl (7-17); Calcium 8.7 mg/dl (8.4-10.2); Carbon Dioxide 25 mmol/L (22.0-30.0); Chloride 104 mmol/L (98-107); Estimated Glomerular Filt Rate 51 ml/min (>60); GFR (African American) 62 ML/MIN (>60); Globulin 2.4 g/dL (1.3-3.2); Glucose 209 mg/dl (74-100); Potassium 4.5 mmoL/L (3.5-5.1); Sodium 136 mmol/L (136-145); Total Protein,Serum 6.3 g/dl (6.3-8.2)
--- NOTE | 2023-04-10 14:24 | XR_ITS ---
FINAL REPORT CLINICAL HISTORY: chest pre op seasonal asthma cough and congestion left total knee replacement COMPARISON: None FINDINGS: Two views of the chest were obtained. The heart size and pulmonary vascularity are within normal limits. The mediastinum is normal. No acute pulmonary abnormality is identified. There is no pneumothorax. The bony thorax is intact. IMPRESSION: No active cardiopulmonary disease. Reviewed, Interpreted and Dictated by Jaspal Tian III, MD Transcribed by Chari Bruce Authenticated and [facility]
== END 2023-04-10 23:59 ==
LOC: LAB 07:19
PROVIDERS: PCP Internal Medicine Adolescent Medicine; Visit Provider Orthopaedic Surgery
DX: Z01.818 Encounter for other preprocedural examination (principal); M17.12 Unilateral primary osteoarthritis, left knee; E11.9 Type 2 diabetes mellitus without complications; Z79.4 Long term (current) use of insulin
CPT/HCPCS: 36415; 71046; 80053; 83036; 85025; 93005

== ENCOUNTER 2023-06-09 07:35 | Outpatient (CLI) | payer OTHER, SELFPAY ==
[2023-06-09 07:55] LABS: Basophils # 0.1 K/mm3 (0-0.2); Basophils % 0.7 % (0.1-2.0); Eosinophils # 0.2 K/mm3 (0.0-0.4); Eosinophils % 2.3 % (0.1-12.0); Hematocrit 42.9 % (37.0-47.0); Hemoglobin 13.3 g/dL (12.2-16.2); Lymphocytes # 2.6 K/mm3 (0.7-4.5); Lymphocytes % 25.3 % (10-50); Mean Corpuscular HGB Conc 31.1 g/dL (31.8-35.4); Mean Corpuscular Hemoglobin 28.5 pg (27.0-31.2); Mean Corpuscular Volume 91.4 fl (81-99); Monocytes # 0.4 K/mm3 (0.1-1.0); Monocytes % 4.2 % (1.7-9.3); Neutrophils % 67.5 % (37.0-80.0); Platelet Count 440 K/mm3 (142-424); Red Blood Count 4.69 M/mm3 (4.20-5.40); Red Cell Distribution Width 15.2 % (11.5-17.5); White Blood Count 10.4 K/mm3 (4.8-10.8)
[2023-06-09 08:34] LABS: Alanine Aminotransferase 21 U/L (12-78); Albumin Level 4.3 g/dl (3.5-5.0); Albumin/Globulin Ratio 1.7 (1.1-1.8); Alkaline Phosphatase 67 U/L (38-126); Anion Gap 13.8 mEq/L (5-15); Aspartate Amino Transferase 24 U/L (14-36); Bilirubin,Total 0.4 mg/dl (0.2-1.3); Blood Urea Nitrogen 21 mg/dl (7-17); Calcium 9.5 mg/dl (8.4-10.2); Carbon Dioxide 26 mmol/L (22.0-30.0); Chloride 104 mmol/L (98-107); Estimated Glomerular Filt Rate 39 ml/min (>60); GFR (African American) 47 ML/MIN (>60); Globulin 2.5 g/dL (1.3-3.2); Glucose 167 mg/dl (74-100); Potassium 4.8 mmoL/L (3.5-5.1); Sodium 139 mmol/L (136-145); Total Protein,Serum 6.8 g/dl (6.3-8.2)
== END 2023-06-09 23:59 ==
LOC: LAB 07:35
PROVIDERS: PCP Internal Medicine Adolescent Medicine; Visit Provider Orthopaedic Surgery
DX: M17.12 Unilateral primary osteoarthritis, left knee (principal)
CPT/HCPCS: 36415; 80053; 83036; 85025

== ENCOUNTER 2023-06-15 07:24 | Outpatient (CLI) | payer OTHER, SELFPAY | END 2023-06-15 23:59 | LOC: LAB 07:24 | PROVIDERS: PCP Internal Medicine Adolescent Medicine; Visit Provider Orthopaedic Surgery | DX: M17.12 Unilateral primary osteoarthritis, left knee (principal); Z01.812 Encounter for preprocedural laboratory examination | CPT/HCPCS: 36415; 83036 ==

== ENCOUNTER 2023-06-29 11:32 | Outpatient (POV) | payer OTHER, SELFPAY | END 2023-06-29 23:59 | disposition home or self-care (01) | LOC: SC 11:32 | PROVIDERS: Visit Provider Specialist/Technologist | DX: Z00.00 Encounter for general adult medical examination without abnormal findings (principal) ==

== ENCOUNTER 2024-01-05 14:19 | Outpatient (POV) | payer OTHER, SELFPAY | END 2024-01-05 23:59 | disposition home or self-care (01) | LOC: SC 14:19 | PROVIDERS: Visit Provider Specialist/Technologist | DX: Z00.00 Encounter for general adult medical examination without abnormal findings (principal) ==

== ENCOUNTER 2024-01-08 13:18 | Outpatient (CLI) | payer OTHER, SELFPAY ==
[2024-01-08 13:55] LABS: Hematocrit 38.6 % (37.0-47.0); Hemoglobin 12.8 g/dL (12.2-16.2); Mean Corpuscular HGB Conc 33.2 g/dL (31.8-35.4); Mean Corpuscular Hemoglobin 29.3 pg (27.0-31.2); Platelet Count 390 K/mm3 (142-424); Red Blood Count 4.39 M/mm3 (4.20-5.40); Red Cell Distribution Width 15.7 % (11.5-17.5); White Blood Count 10.4 K/mm3 (4.8-10.8)
[2024-01-08 14:11] LABS: Albumin Level 4.1 g/dl (3.5-5.0); Anion Gap 11.2 mEq/L (5-15); Blood Urea Nitrogen 27 mg/dl (7-17); Carbon Dioxide 25 mmol/L (22.0-30.0); Chloride 105 mmol/L (98-107); Estimated Glomerular Filt Rate 33 ml/min (>60); GFR (African American) 40 ML/MIN (>60); Glucose 178 mg/dl (74-100); Potassium 4.2 mmoL/L (3.5-5.1); Sodium 137 mmol/L (136-145)
[2024-01-08 15:33] LABS: Hemoglobin A1C 7.1 % (4.0-6.0)
== END 2024-01-08 23:59 | disposition home or self-care (01) ==
LOC: LAB 13:19
PROVIDERS: PCP Internal Medicine Adolescent Medicine; Visit Provider Orthopaedic Surgery Adult Reconstructive Orthopaedic Surgery
DX: M17.12 Unilateral primary osteoarthritis, left knee (principal)
CPT/HCPCS: 36415; 80048; 82040; 83036; 85027

== ENCOUNTER 2024-03-25 15:44 | Outpatient (CLI) | payer OTHER, SELFPAY ==
--- NOTE | 2024-03-25 15:45 | US_ITS ---
PROCEDURE INFORMATION: Exam: US Right Breast, Complete Exam date and time: 03/25/2024 3:50 PM Age: 59 years old Clinical indication: Right breast pain. TECHNIQUE: Imaging protocol: Complete ultrasound of all four quadrants of the right breast and the retroareolar regions, including ultrasound of the axilla when performed. COMPARISON: MG MM DIG SCREENING MAMM BI W/CAD 03/12/2023 3:44 PM FINDINGS: ULTRASOUND: Breast ultrasound findings: Right breast ultrasound: The region of pain in the right breast was not indicated by the technologist. Redemonstrated surgical scar at 12 o'clock. Redemonstrated probable intramammary lymph node at 10 o'clock 9 cm from the nipple measuring 0.5 cm, unchanged mammographically since at least 02/02/2019. No suspicious masses. No abnormal lymph nodes in the axilla. IMPRESSION: No sonographic finding to explain the patient's breast pain. Recommend clinical follow-up.There are no findings suspicious for malignancy. Annual mammographic screening is recommended unless otherwise clinically indicated. ASSESSMENT: BI-RADS Category 2: Benign.
== END 2024-03-25 23:59 | disposition home or self-care (01) ==
LOC: RAD 15:45
PROVIDERS: PCP Internal Medicine Adolescent Medicine; Visit Provider Obstetrics & Gynecology
DX: N64.4 Mastodynia (principal)
CPT/HCPCS: 76641

== ENCOUNTER 2024-03-28 15:00 | Outpatient (RCR) | payer OTHER, SELFPAY | END 2024-03-28 23:59 | disposition home or self-care (01) | LOC: PT 15:00 | PROVIDERS: PCP Internal Medicine Adolescent Medicine; Visit Provider Orthopaedic Surgery Adult Reconstructive Orthopaedic Surgery | DX: M17.12 Unilateral primary osteoarthritis, left knee (principal); Z98.890 Other specified postprocedural states | CPT/HCPCS: 97014; 97016; 97110; 97140; 97163; 97164; G0283 ==

== ENCOUNTER 2024-06-03 07:24 | Outpatient (CLI) | payer OTHER, SELFPAY ==
[2024-06-03 08:00] LABS: Basophils # 0.1 K/mm3 (0-0.2); Basophils % 0.6 % (0.1-2.0); Eosinophils # 0.2 K/mm3 (0.0-0.4); Eosinophils % 2.2 % (0.1-12.0); Hematocrit 39.9 % (37.0-47.0); Hemoglobin 12.5 g/dL (12.2-16.2); Lymphocytes # 2.2 K/mm3 (0.7-4.5); Lymphocytes % 22.8 % (10-50); Mean Corpuscular HGB Conc 31.3 g/dL (31.8-35.4); Mean Corpuscular Hemoglobin 27.2 pg (27.0-31.2); Mean Corpuscular Volume 86.9 fl (81-99); Mean Platelet Volume 9.9 fl (7.4-10.4); Monocytes # 0.6 K/mm3 (0.1-1.0); Monocytes % 6.3 % (1.7-9.3); Neutrophils # 6.4 K/mm3 (1.8-7.8); Neutrophils % 67.5 % (37.0-80.0); Platelet Count 357 K/mm3 (142-424); Red Blood Count 4.59 M/mm3 (4.20-5.40); Red Cell Distribution Width 15.3 % (11.5-17.5); White Blood Count 9.4 K/mm3 (4.8-10.8)
[2024-06-03 08:31] LABS: Alanine Aminotransferase 23 U/L (12-78); Albumin Level 4.1 g/dl (3.5-5.0); Alkaline Phosphatase 55 U/L (38-126); Anion Gap 9.9 mEq/L (5-15); Aspartate Amino Transferase 21 U/L (14-36); Bilirubin,Total 0.3 mg/dl (0.2-1.3); Blood Urea Nitrogen 26 mg/dl (7-17); Calcium 9.3 mg/dl (8.4-10.2); Carbon Dioxide 27 mmol/L (22.0-30.0); Chloride 105 mmol/L (98-107); Chol/HDL Ratio 3.4 (1-3.5); Cholesterol 154 mg/dl (140-200); Estimated Glomerular Filt Rate 46 ml/min (>60); GFR (African American) 56 ML/MIN (>60); Globulin 2.1 g/dL (1.3-3.2); Glucose 206 mg/dl (74-100); HDL Cholesterol 45 mg/dl (40-60); Potassium 4.9 mmoL/L (3.5-5.1); Sodium 137 mmol/L (136-145); Total Protein,Serum 6.2 g/dl (6.3-8.2); Triglycerides 152 mg/dl (30-150); VLDL Cholesterol 30 mg/dL (0-40)
[2024-06-03 08:45] LABS: Direct LDL Cholesterol 67.12 mg/dL (100-129)
[2024-06-03 08:48] LABS: 25-OH Vitamin D, Total 41.5 ng/mL (30-100)
[2024-06-03 08:51] LABS: Free Thyroxine Index 2.8 ug/dL (5.93-13.13); T4 (Thyroxine) 7.8 ug/dl (5.53-11.0); Triiodothryronine (T3) Uptake 36 % (23.5-40.5)
[2024-06-03 09:04] LABS: Thyroid Stimulating Hormone 0.13 uIU/mL (0.465-4.68)
[2024-06-03 09:24] LABS: Vitamin B12 991 pg/mL (239-931)
[2024-06-03 16:09] LABS: Hemoglobin A1C 7.8 % (4.0-6.0)
== END 2024-06-03 23:59 | disposition home or self-care (01) ==
LOC: LAB 07:26
PROVIDERS: PCP Internal Medicine Adolescent Medicine; Visit Provider Internal Medicine Adolescent Medicine
DX: E55.9 Vitamin D deficiency, unspecified (principal); G62.9 Polyneuropathy, unspecified; E11.65 Type 2 diabetes mellitus with hyperglycemia; Z79.4 Long term (current) use of insulin; Z68.41 Body mass index [BMI] 40.0-44.9, adult; E66.9 Obesity, unspecified
CPT/HCPCS: 36415; 80053; 80061; 82306; 82607; 83036; 84436; 84443; 84479; 85025

== ENCOUNTER 2024-09-28 07:40 | Outpatient (CLI) | payer OTHER, SELFPAY ==
--- OUTSIDE RECORDS SUMMARY | 2024-09-28 07:46 | XMS_ITS | Clinical Summary ---
Author Organization [facility] Address [address] [place] [address] Care Team Providers Care Rn Disease Management Name Role Phone Edwin Islas MD Primary Care Provider [phone] Allergies Active Allergy Reactions Criticality Noted Date Comments Barrington Inhibitors Shortness of breath,Rash,Other - please document in the comment field High 10/27/2017 all barrington inhibitorsRash/SOA Acetylcysteine Other - please document in the comment field,Unknown - Patient states they do not know rxn details Low 10/27/2017 broncho spasm Cephalexin Rash Low 12/19/2019 all cephalosporins Cephalosporins Unknown - Patient states they do not know rxn details Low 01/04/2020 Ibuprofen Anaphylaxis High 10/27/2017 Midazolam Anaphylaxis High 10/27/2017 Minoxidil Rash Low 10/27/2017 Sulfacetamide Unknown - Patient states they do not know rxn details Low 10/27/2017 Sulfamethoxazole-Trim ethoprim Anaphylaxis High 12/19/2019 Tramadol Hallucinations Medium 01/04/2024 Medications bisoprolol (Zebeta) 10 MG tablet Take 1 tablet (10 mg) by mouth 1 (one) time each day. 8 Active omeprazole (PriLOSEC) [address] capsule Take 1 capsule (20 mg) by mouth 2 (two) times a day. 0 Active Symbicort 160-4.5 MCG/ACT inhaler Inhale 2 puffs if needed. 2 Active ergocalciferol 1.25 MG (89625 UT) capsule Take 1 capsule (50,000 Units) by mouth. Thursday and Fridays 1 Active rosuvastatin (Crestor) 10 MG tablet Take 1 tablet (10 mg) by mouth 1 (one) time each day. 1 Active diclofenac (Voltaren) 1 % topical gel Place 1-2 g on the skin 2 (two) times a day. Apply as directed to left knee 150 g 4 Active Additional Information Patient taking differently:1-2 g Transdermal2 times daily PRN, Apply as directed to left knee, Reported on 01/04/2024 tirzepatide (Mounjaro) 15 MG/0.5ML solution pen-injector solution pen-injector Inject 0.5 mL (15 mg) under the skin 1 (one) time per week. Thursday 4 Active escitalopram (Lexapro) 10 MG tablet Take 1 tablet (10 mg) by mouth 1 (one) time each day. Active lactobacillus (Culturelle Immunity Support) capsule Take 1 capsule by mouth 1 (one) time each day. Active Insulin Glargine (BASAGLAR KWIKPEN SC) Inject 30 Units under the skin every night. 30-40 units Active NovoLIN R FlexPen 100 UNIT/ML pen Inject 0.12-0.16 mL (12-16 Units) under the skin 2 (two) times a day with meals. With Lunch and Dinner 4 Active levalbuterol (Xopenex) 45 MCG/ACT inhaler Inhale 1-2 puffs every 4 (four) hours if needed for wheezing. Active estradiol (Estrace) 0.1 MG/GM vaginal cream Thursday and Thursday 4 Active metoclopramide (Reglan) 5 MG tablet Take 1 tablet (5 mg) by mouth 3 (three) times a day. 4 Active polyethylene glycol (Miralax) 17 g packet Take 17 g by mouth 1 (one) time each day. Active psyllium (Metamucil) 58.6 % packet Take 1 packet by mouth 1 (one) time each day. Active apixaban (Eliquis) 2.5 MG tablet Take 1 tablet (2.5 mg) by mouth 2 (two) times a day. For 4 weeks post-op for blood clot prevention 56 tablet 4 Active acetaminophen (Tylenol Extra Strength) 500 MG tablet Take 2 tablets (1,000 mg) by mouth every 8 (eight) hours. 100 tablet Active methocarbamol (Robaxin) 500 MG tabletIndicatio ns:S/P total knee arthroplasty, left Take 1 tablet (500 mg) by mouth 3 (three) times a day if needed for muscle spasms. 30 tablet Active Additional Information Patient not taking.Reported on 02/25/2024 oxyCODONE (Roxicodone) 5 MG immediate release tablet Take 1 tablet (5 mg) by mouth every 8 (eight) hours if needed for severe pain. 30 tablet Active Additional Information Patient not taking.Reported on 02/25/2024 gabapentin (Neurontin) 100 MG capsule Take 1 capsule (100 mg) by mouth 3 (three) times a day. If this medication makes you drowsy you may take it only at bedtime 30 capsule Active Additional Information Patient not taking.Reported on 02/25/2024 Active Problems Problem Noted Date Diagnosed Date Postoperative nausea and vomiting 01/13/2024 Type 2 diabetes mellitus 01/13/2024 Hypertension 01/13/2024 Arthritis of left knee 11/24/2023 Morbid obesity 05/07/2021 Bursitis of hip 02/28/2020 Spondylolisthesis, grade 1 07/12/2019 DDD (degenerative disc disease), lumbar 02/22/20 19 Low back pain 02/21/2019 Facet arthropathy, lumbar 02/21/2019 Glenohumeral arthritis, right 10/31/2017 Tendinopathy of right biceps tendon 10/31/2017 Shoulder pain 10/27/2017 Family History Medical History Relation Name Comments Cancer Father Thomas Huddleston Conversions - Other Father Thomas Huddleston Patient 's father is Diabetes Father Thomas Huddleston Other cancer Father Thomas Huddleston Broken bones Mother Hanane Rosenbaum Conversions - Other Mother Hanane Rosenbaum Patient' s father is Diabetes Mother Hanane Rosenbaum Relation Name Status Comments Father Thomas Huddleston Mother Hanane Rosenbaum Social History Tobacco Use Types Packs/Day Years Used Date Smoking Tobacco: Never Smokeless Tobacco: Never Alcohol Use Standard Drinks/Week Comments Not Currently 0 (1 standard drink = 0.6 oz pur e alcohol) Comments No Sex and Gender Information Value Date Recorded Sex Assigned at Not on file Legal Sex Female 8:30 PM EDT Gender Identity Female 05/06/2021 11:27 AM EST Sexual Orientation Not on file Last Filed Vital Signs Vital Sign Reading Time Taken Comments Blood Pressure 107/75 02/25/2024 11:31 AM EST Pulse 61 02/25/2024 11:31 AM EST Temperature 37 C (98.6 F) 01/14/2024 11:35 AM EDT Respiratory Rate 14 01/14/2024 11:35 AM EDT Oxygen Saturation 97% 02/25/2024 11:31 AM EST Inhaled Oxygen Concentration - - Weight 116 kg (254 lb 13.6 oz) 02/25/2024 11:31 AM EST Height 157.5 cm (5' 2 ) 02/25/2024 11:31 AM EST Body Mass Index 46.61 02/25/2024 11:31 AM EST Plan of Treatment Health Maintenance Due Date Last Done Comments [facility]-Depression Screening 1965 [facility]-HIV Screening 1965 [facility]-Hepatitis C Screening 1965 [facility]-Infant/Child/Adol SDOH Screenings 1965 Diabetes: Dental Exam 1977 [facility]- SDOH Screenings 1985 [facility]-Adult SDOH Screenings 1985 [facility]-DTaP,Tdap,and Td Vaccines (1 - Tdap) 1986 [facility]-Hepatitis B Vaccines (1 of 3 - 19+ 3-dose series) 1986 [facility]-Pneumococcal Vaccine: 50+ Years (1 of 2 - PCV) 1986 [facility]-Pap Smear 01/07/1988 [facility]-Cervical Cancer Screening 1997 [facility]-HPV/Cotest 1997 [facility]-Breast Cancer Screening 2017 [facility]-Zoster Vaccines (1 of 2) 2017 [facility]-Diabetes: Hemoglobin A1C 06/13/2020 12/15/2019 [id number] Vaccine ( season) 2023 02/07/2021, 05/07/2020, 04/05/2020 [facility]-Influenza Vaccine (Season Ended) 2024 [facility]-Obesity Intervention Completed 024, 01/28/2024, 11/24/2023, Additional history exists HPV Vaccines Aged Out No longer eligi ble based on patient's age to complete this topic [facility]-HIB Vaccines Aged Out No longer e ligible based on patient's age to complete this topic [facility]-Hepatitis A Vaccines Aged Out No longer eligible based on patient's age to complete this topic [facility]-IPV Vaccines Aged Out No longer e ligible based on patient's age to complete this topic [facility]-Rotavirus Vaccines Aged Out No lo nger eligible based on patient's age to complete this topic Goals Goal Patient Goal Type Associated Problems Recent Progress Patient-Stated? Author Autogenera mechelle Goal Care Plan Autogenerated Problem No Edwin Malloy MD Medical Devices Implanted Type Area Boiler Water Tester Device Identifier Shelf Expiration Date Model / Serial / Lot Cement Palacos Mv - [id number] Implanted:Qty: 2 on 01/13/2024 by Edwin Malloy MD at [facility] Left: Knee [id number] 01/04/2028 [id number] / / [id number] Chg Tibial [employer] Administrative Assistant L - [id number] Implanted:Qty: 1 on 01/13/2024 by Edwin Malloy MD at [facility] Left: Knee [employer]-[id number] 08/14/2033 [id number] / / [id number] Jrny Ii Bcs Femoral Oxin Lt Sz - [id number] Implanted:Qty: 1 on 01/13/2024 by Edwin Malloy MD at [facility] Left: Knee [employer]-[id number] 08/22/2033 [id number] / / [id number] Chg Patella Gii Oval Resurfaci - [id number] Implanted:Qty: 1 on 01/13/2024 by Edwin Malloy MD at [facility] Left: Knee [employer]-[id number] 09/02/2033 [id number] / / [id number] Insert Xlpe Journey Ii As Artic Sz 3-4/9mm Lt - [id number] Implanted:Qty: 1 on 01/13/2024 by Edwin Malloy MD at [facility] Left: Knee [employer]-[id number] 07/07/2033 [id number] / / [id number] Procedures Procedure Name Priority Date/Time Associated Diagnosis Comments HEMOGLOBIN A1C Routine 12/15/2019 12:04 PM EDT from Last 3 Months or Most Recently Relevant to Health Maintenance Results * (ABNORMAL) Hemoglobin A1c (12/15/2019 12:04 PM EDT) Hemoglobin A1c 7.6(H) 4.7 - 6.0 % [facility] Comment: Glycohemoglobin Reference Range, 0 years and up: 4.7 to 6.0% . HA1C Interpretive Data: Diagnosis of Diabetes: Diabetic > or = 6.5% Pre-diabetic 5.7 to 6.4% Non-diabetic < or = 5.6% . Glycemic Targets for Type I and Type II Diabetics: Non- Adults <7.0% Adults <6.0% Children and Adolescents <7.5% . Source: [place] [employer]. Standards of medical care in diabetes, 2017. Diabetes Care.2017:40 (suppl 1):S1-S135. . HbA1c assay performed by an ion-exchange chromatography method that is certified traceable to the DCCT. 12/15/2019 12:0 4 PM EDT 12/15/2019 1:30 PM EDT Juan Carlos Mckee MD LAB BLOOD ORDERABLES Final Re sult [facility] from Last 3 Months or Most Recently Relevant to Health Maintenance Additional Health Concerns Active Problems Noted Date Diagnosed Date Autogenerated Problem 09/08/2024 Insurance [facility] Advance Directives * Full Code (Latest Code Status on File) Date Activated Date Inactivated Comments 01/13/2024 1:10 PM 01/14/2024 4:49 PM Question Answer Comments Patient has decision-making capacity? Yes Care Teams Rn Disease Management Relationship Specialty Start Date End Date Edwin Islas MD [address] [place] [id number] PCP - General 08/17/20
--- OUTSIDE RECORDS SUMMARY | 2024-09-28 07:46 | XMS_ITS | Data Portability ---
Author Organization [facility] JESSA Lamas IAEGER CLOSED Address [address] [place] [address] Assessment No assessment recorded. Plan of Treatment Reminders Order Date Submit Date Provider Last Modified By Organization Details Last Modified Time Details Appointments None record ed. Lab None record ed. Referral None record ed. Procedures None record ed. Surgeries None record ed. Imaging None record ed. Medication Orders None record ed. Patient TargetsNo targets recorded. Patient Instructions Encounter Date Encounter Id Patient Instructions Last Modified By Organization Details Last Modified Time 02/10/2018 [id number] bladder training : care instructions [email or web address] Not available 02/12/2018 07:39:26 kegel exercises: care instructions [email or web address] Not available 02/12/2018 07:39:26 Stress Incontinence: Care Instructions [email or web address] Not available 02/12/2018 07:39:26 Urge Incontinence: Care Instructions [email or web address] Not available 02/12/2018 07:39:26 Reason for Referral None Reported. Results Created Date Observation Date Name Description Value Unit Range Abnormal Flag Note LastModifiedBy Organization Detail LastModifiedTime 02/27/20 18 10/13/2017 CT, abdom en + pelvi s, w/o contr ast No observ ation record ed. [facility] [address], [place], [address], 02/26/2018 16:14:58 Result Notes None recorded. Procedures Surgical History Date Name Laterality Status Provider Name and Address Organization Details Recorded Time 02/11/20 18 Uroflowmetry; Complex completed [facility] 02/11/2018 10:08:34 02/11/20 18 Urodynamics Interpretation completed [facility] 02/11/2018 10:08:38 02/11/20 18 Urodynamics completed [facility] 02/11/2018 10:58:46 biopsy of breast completed [facility] 02/10/2018 12:54:16 Other completed [facility] 02/10/2018 12:54:47 Cholecystectomy completed [facility] 02/10/2018 12:55:07 Tonsillectomy completed [facility] 02/10/2018 12:55:19 Uterine Ablation completed [facility] 02/10/2018 12:56:21 Imaging Results None recorded. Procedure Notes None recorded. Medical Equipment None Reported. Allergies Allergen ID Allergen Name Allergen Category Reaction Reaction Severity Criticality Documentation Date Start Date Code Code System Note Provider Name and Address Organization Details Recorded Time 373785 ibuprofen medicatio n respirato ry distress Not available Not available 02/10/2018 5640 RxNorm [facility] 8 11:19:33 872916 midazolam hydrochlo ride medicatio n respirato ry distress Not available Not available 02/10/2018 67437 8 RxNorm [facility] 8 11:19:59 162972 Medicinal product containin g cephalosp blas and acting as antibacte rial agent (product) medicatio n rash Not available Not available 02/10/2018 51889 9009 SNOMED [facility] 8 11:20:21 049598 Substance with sulfonami de structure and antibacte rial mechanism of action (substanc e) medicatio n respirato ry distress Not available Not available 02/10/2018 30667 8003 SNOMED [facility] 8 11:20:33 277845 Product containin g angiotens in-conver ting enzyme inhibitor (product) medicatio n rash Not available Not available 02/10/2018 60856 009 SNOMED [facility] 8 11:20:53 973880 Mucomyst medicatio n respirato ry distress Not available Not available 02/10/2018 56821 6 RxNorm Lauren Benito [facility] 8 11:22:07 185682 Rogaine medicatio n rash Not available Not available 02/10/2018 95924 2 RxNorm Lauren Benito [facility] 8 11:22:35 Medications Name Sig Start Date Stop Date Status Note LastModified by Organization Details LastModified Time celecoxib 200 mg capsule Take 1 capsule every day by oral route. active Not Available Not Available No t Available ranitidine 300 mg tablet Take 1 tablet every day by oral route. active Not Available Not Available No t Available tramadol 50 mg tablet Take 1 tablet every 6 hours by oral route. active Not Available Not Available Not Available spironolacto ne 25 mg tablet Take 1 tablet every day by oral route. active Not Available Not Available No t Available bisoprolol fumarate 10 mg tablet Take 1 tablet every day by oral route. active Not Available Not Available No t Available amitriptylin e 25 mg tablet Take 1 tablet every day by oral route. active Not Available Not Available No t Available metformin 1,000 mg tablet Take 1 tablet twice a day by oral route. active Not Available Not Available No t Available Levemir U-100 Insulin 100 unit/mL subcutaneous solution Inject by subcutaneou s route. active Not Available Not Available No t Available Januvia 100 mg tablet Take 1 tablet every day by oral route. active Not Available Not Available No t Available Myrbetriq 25 mg tablet,exten ded release TAKE 1 TABLET BY MOUTH ONCE DAILY active Not Available Not Available No t Available Victoza 2-You 0.6 mg/0.1 mL (18 mg/3 mL) subcutaneous pen injector Inject by subcutaneou s route. active Not Available Not Available No t Available Vitals Date Recorded Body height Body mass index (BMI) Body weight Heart rate Body height Body mass index (BMI) Body weight Systolic blood pressure Diastolic blood pressure Provider Name and Address Organization Details Last Updated DateTime 8 160.02 cm 46.1 kg/m2 669069. 02 g 73 /min 160.02 cm 46.1 kg/m2 129996. 02 g 141 mm[Hg] 83 mm[Hg] Lauren Benito [facility] 8 12:52:30 Social History Question Answer Notes LastModified by Organizat ion Details LastModified Time Tobacco Smoking Status Never Smoker Lauren Benito [facility] 02/10/2018 12:53:36 Marital Status Informatio n not available 02/10/2018 What Was The Date Of Your Most Recent Tobacco Screening? 02/11/2018 Information n ot available 05/24/2019 Sex: Unknown Functional Status Question Answer Note LastModified by Organizat ion Details LastModified Time What is your level of alcohol consumption? 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 Family History Relationship Description Onset Age of this Age Resolved Age Notes LastModified by Organization Details LastModified Time Paternal Grandmother Diabetes mellitus Not available 2017 12:53:31 Medical History Condition Response Allergies/Hayfever Y Diabetes Y Acid Reflux (GERD) Y Hypertension Y Kidney Stones Y Asthma Y Gynecological HistoryNo gynecological history recorded. Obstetrics History GPAL:G 0 P 0 0 0 0 Past Encounters Encounter ID Performer Location Encounter Start Date Encounter Closed Date Diagnosis/Indication Diagnosis SNOMED-CT Code Diagnosis ICD10 Code Diagnosis Note [id number] MD YANICK FLORES [facility] [address] [place] [address] 02/10/2018 10:33:16 02/10/2018 11:57:44 Incomplete emptying of urinary bladder 673922047 R39.14 Female str ess incontinence 47121792 N39.3 [id number] MD YANICK FLORES [facility] [address] [place] [address] 02/10/2018 10:37:46 02/10/2018 13:19:56 Female stress incontinence 40999666 N39.3 We will arrange for TOT at [facility].D iscussion time 30 minutes Urge incon tinence of urine 20502227 N39.41 She will continue Myrbetriq Health Concerns Section Related Observation LastModified by Organization Detai ls LastModified Time None Recorded Concern Status LastModified by Organization Details LastModified Time None Recorded Advance Directives Directive None Recorded Payers Insurance Date Sequence Insurance Name Policy Number Policy White Covered Member ID White Member ID Guarantor Name 02/29/2020 1 R (PPO) [id number] Hanane Higginbotham [id number] Hanane Higginbotham Notes Date Note Type Note Provider Name and Address Organization Details Recorded Time 02/10/2018 text/html Patient complete d urodynamic studies earlier this morning. She is here to discuss her findings regarding urinary incontinence. She did exhibit stress urinary incontinence. Her initial residual was 120. She exhibited uninhibited contraction at capacity but actually had difficulty voiding at the completion of the procedure. In fact she was catheterized for 600 mL of irrigant. I recently increased her Myrbetriq medication to 50 mg per day. That improved her urgency and frequency dramatically. She has noticed some slight slowing of urination but dramatically decreased the episodes of voiding throughout the day. We discussed these compounding findings. Her most troublesome symptom is stress incontinence. We discussed proceeding with trans-obturator tightening. Discussed that this may or may not impact her urgency. We discussed risk of the procedure including the use of surgical mesh. We discussed convalescence. We discussed durability. She understands that her weight may impact the durability of her procedure. She does request that this be performed at [facility] due to insurance concerns and coverage. FAROOQ COLINDRES MD [address] [place] [address], [phone], [facility] 02/12/2018 07:40:08 OBGyn Episode No OBEpisode recorded.
--- OUTSIDE RECORDS SUMMARY | 2024-09-28 07:46 | XMS_ITS | Data Portability ---
Author Organization [place] - [facility] JOYCE Rasheed ADMIN Address [address] [place] [address] Care Team Providers Care Haircutter Name Role Phone GHADA DOUGHERTY Primary Care Provider Assessment No assessment recorded. Plan of Treatment Reminders Order Date Submit Date Provider Last Modified By Organization Details Last Modified Time Details Appointments None recorded. Lab None recorded. Referral None recorded. Procedures None recorded. Surgeries None recorded. Imaging None recorded. Medication Orders Medrol (You) 4 mg tablets in a dose pack 2022 023 [facility], [address] [place] [address] E [address], [place], [place], [phone], 3 15:51:30 hydrocortis one 2.5 % topical ointment 2022 [facility], [address] [place] [address] [address] [place], [place], [id number], 3 16:41:16 Patient TargetsNo targets recorded. Patient Instructions Encounter Date Encounter Id Patient Instructions Last Modified By Organization Details Last Modified Time 08/26/2022 [id number] 1-Discussed findings with Ms. Higginbotham and Dr. Kaminski. 2-F/u w/ Dr. Kaminski this date. Not available 08/26/2022 16:42:52 Reason for Referral None Reported. Results Created Date Observation Date Name Description Value Unit Range Abnormal Flag Note LastModifiedBy Organization Detail LastModifiedTime 08/14/1901/01/2021 audio gram No observ ation record ed. BARCODE Not Available 2022 12:42:36 08/27/19 23 08/26/2022 audio gram No observ ation record ed. BARCODE Not Available 2022 16:48:19 Result Notes None recorded. Problems Name Problem SNOMED Code Status Onset Date Resolution Date Notes Provider Name and Address Organization Details Recorded Time Subjectiv e tinnitus of right ear 06327859366 50913 Active 2020 Not Available [facility] 2 11:51:28 Constipat ion 40305670 Active 2021 Not Available [facility] 2 11:51:28 Nausea and vomiting 30939026 Active 2021 Not Available [facility] 2 11:51:28 Upper abdominal pain 29430456 Active 2021 Not Available [facility] 2 11:51:28 Hearing loss 22695637 Active 2020 Hearing loss Not Available [facility] 2 11:51:28 Tinnitus 28887756 Active 2020 Tinnitus Not Available [facility] 2 11:51:28 Gastroeso phageal reflux disease 760001714 Active 2021 Not Available [facility] 2 11:51:28 Epigastri c pain 68306466 Active 2021 Leandra Tristan NP [address] [place] [address], [address], [place], [address] , [facility] & [place] 2 16:08:42 Sensorine ural hearing loss in right ear 97883775324 100 Active 2022 GERTRUDE ALEXIS, ANGELY [address] , [place], [address] , [facility] & [place] 3 16:42:33 Dizziness 089256929 Active 2022 ANGELY QUEVEDO [address] , [place], [address] , [facility] & [place] 3 16:12:49 Problem Notes None recorded. Procedures Surgical History Date Name Laterality Status Provider Name and Address Organization Details Recorded Time 6 EGD/Endoscopy completed Leandra Tristan NP [address], [address], [place], [address], [facility] & [place] 12/23/2021 16:00:09 6 colonoscopy completed Leandra Tristan NP [address], [address], [place], [address], [facility] & [place] 12/23/2021 16:00:40 Imaging Results None recorded. Procedure Notes None recorded. Medical Equipment None Reported. Allergies Allergen ID Allergen Name Allergen Category Reaction Reaction Severity Criticality Documentation Date Start Date Code Code System Note Provider Name and Address Organization Details Recorded Time 98095 midazolam hydrochlo ride medicatio n Not available Not available Not available 08/26/2022 8 [facility] [place] 3 16:10:28 9270 allopurin ol medicatio n Not available Not available Not available 12/16/2021 519 RxNorm React ion: Unkno wn, sever ity: Unkno wn Not Available [facility] 2 01:57:11 9274 sulfasala zine Not available Not available Not available Not available 12/16/2021 9524 RxNorm React ion: Unkno wn, sever ity: Unkno wn Not Available [facility] 2 01:57:11 9280 minoxidil medicatio n Not available Not available Not available 12/16/2021 6984 RxNorm React ion: Unkno wn, sever ity: Unkno wn Not Available [facility] 2 01:57:12 9284 Medicinal product containin g cephalosp blas and acting as antibacte rial agent (product) medicatio n Not available Not available Not available 12/16/2021 60262 9009 SNOMED React ion: Unkno wn, sever ity: Unkno wn Not Available [facility] 2 01:57:12 9291 loperamid e medicatio n Not available Not available Not available 12/16/2021 6468 RxNorm React ion: Unkno wn, sever ity: Unkno wn Not Available [facility] 2 01:57:12 9295 ibuprofen medicatio n Not available Not available Not available 12/16/2021 5640 RxNorm React ion: Unkno wn, sever ity: Unkno wn Not Available [facility] 2 01:57:12 9303 acetylcys teine medicatio n Not available Not available Not available 12/16/2021 197 RxNorm React ion: Unkno wn, sever ity: Unkno wn Not Available [facility] 2 01:57:12 9307 midazolam medicatio n Not available Not available Not available 12/16/2021 6960 RxNorm React ion: Unkno wn, sever ity: Unkno wn Not Available [facility] 2 01:57:12 Medications Name Sig Start Date Stop Date Status Note LastModified by Organization Details LastModified Time Medrol (You) 4 mg tablets in a dose pack Take 1 dose pk by oral route. 01/27 completed Not Available Not Available Not Available bisoprolol fumarate 10 mg tablet 1 tablet Orally Once a day for 30 day(s) 2020 active Not Available Not Available Not Avai lable losartan 100 mg-hydrochl orothiazide 25 mg tablet 1 tablet Orally Once a day for 30 day(s) 2020 active Not Available Not Available Not Avai lable metformin 1,000 mg tablet 1 tablet with a meal Orally Once a day for 30 day(s) 2020 active Not Available Not Available Not Avai lable buspirone 10 mg tablet 1 tablet Orally Twice a day 2020 active Not Available Not Available Not Avai lable aspirin 81 mg chewable tablet 1 tablet Orally Once a day for 30 day(s) 2020 active Not Available Not Available Not Avai lable hydrocortis one 2.5 % topical ointment APPLY A THIN LAYER TO THE AFFECTED AREA(S) BY TOPICAL ROUTE 2 TIMES PER DAY 2022 active Not Available Not Available Not Avai lable Tylenol 8 Hour 650 mg tablet,exte nded release Take 2 tablets every 8 hours by oral route. active Not Available Not Available No t Available Crestor 20 mg tablet 1 tablet Orally Once a day for 30 day(s) 2020 active Not Available Not Available Not Avai lable omeprazole magnesium 20 mg tablet,ronak yed release 1 tablet Orally Once a day for 30 days 2020 active Not Available Not Available Not Avai lable Januvia 100 mg tablet 1 tablet Orally Once a day for 30 day(s) 2020 active Not Available Not Available Not Avai lable levocetiriz ine 5 mg tablet 1 tablet in the evening Orally Once a day for 30 day(s) 2020 active Not Available Not Available Not Avai lable Trulicity 1.5 mg/0.5 mL subcutaneou s pen injector Inject by subcutane ous route. active Not Available Not Available No t Available Basaglar KwikPen U-100 Insulin active Not Available Not Available Not Available Soliqua 100/33 100 unit-33 mcg/mL subcutaneou s insulin pen as directed Subcutane ous 2020 active Not Available Not Available Not Avai lable magnesium 200 mg (as magnesium oxide) chewable tablet Take by oral route. active Not Available Not Available No t Available Novolin N FlexPen 100 unit/mL (3 mL) subcutaneou s insulin pen Inject by subcutane ous route. active Not Available Not Available No t Available vitamin D3 1,250 mcg (50,000 unit)-vitam in K2 200 mcg capsule Take by oral route. active Not Available Not Available No t Available Mounjaro 15 mg/0.5 mL subcutaneou s pen injector Inject by subcutane ous route. 01/27 completed Not Available Not Available Not Available Vitals Date Recorded Body weight Body mass index (BMI) Body height Systolic blood pressure Diastolic blood pressure Provider Name and Address Organization Details Last Updated DateTime 08/26/2022 082506.7 9 g 46.6 kg/m2 160.02 cm 161 mm[Hg] 78 mm[Hg] Saturnino DRISCOLL [facility] - [place] & [place] 3 16:08:58 Date Recorded Body weight Body temperature Oxygen saturation Oxygen saturation in Arterial blood by Pulse oximetry Heart rate Systolic blood pressure Diastolic blood pressure Provider Name and Address Organization Details Last Updated DateTime 2 811383. 87 g 98.6 [degF] 95 % 95 % 70 /min 128 mm[Hg] 88 mm[Hg] Yaz Joiner [place] - [facility] - [place] & [place] 15:31:53 Social History None recorded. Functional Status None recorded. Mental Status None recorded. Family History Relationship Description Onset Age of this Age Resolved Age Notes LastModified by Organization Details LastModified Time Mother Allergy pt. added direct ly (12/22) [email or web address]-13 Not available 12/22/2021 12:54:18 Mother Anemia pt. added direct ly (12/22) [email or web address]-13 Not available 12/22/2021 12:54:26 Mother Disorder of endocrine system pt. added direct ly (12/22) [email or web address]-13 Not available 12/22/2021 12:55:00 Brother Allergy pt. added direct ly (12/22) [email or web address]-13 Not available 12/22/2021 12:54:18 Father Disorder of endocrine system pt. added direct ly (12/22) [email or web address]-13 Not available 12/22/2021 12:55:00 Father Heart disease pt. added direct ly (12/22) [email or web address]-13 Not available 12/22/2021 12:55:29 Father Obesity pt. added direct ly (12/22) API-13 Not available 12/22/2021 12:56:52 Maternal Grandmother Disorder of endocrine system pt. added direct ly (12/22) API-13 Not available 12/22/2021 12:55:00 Paternal Grandmother Disorder of endocrine system pt. added direct ly (12/22) API-13 Not available 12/22/2021 12:55:00 Paternal Grandmother Heart disease pt. added direct ly (12/22) API-13 Not available 12/22/2021 12:55:29 Paternal Grandmother Obesity pt. added direct ly (12/22) API-13 Not available 12/22/2021 12:56:52 Maternal Aunt Disorder of endocrine system pt. added direct ly (12/22) API-13 Not available 12/22/2021 12:55:00 Maternal Aunt Cerebrovascu lar accident pt. added direct ly (12/22) API-13 Not available 12/22/2021 12:56:02 Maternal Aunt Obesity pt. added direct ly (12/22) API-13 Not available 12/22/2021 12:56:52 Maternal Grandfather Cerebrovascu lar accident pt. added direct ly (12/22) API-13 Not available 12/22/2021 12:56:02 Paternal Aunt Obesity pt. added direct ly (12/22) API-13 Not available 12/22/2021 12:56:52 Medical History Condition Response Allergies/Hayfever N Heart Problems N None N Heart Conditions N Emphysema N Migraines N Thyroid Problems N Glaucoma N Depression N Developmental Delay N Anemia N Immune System Disorder N Anesthesia Complications N Heart Attack ([place]) N Anxiety Disorder N Diabetes N Bleeding Disorder N Arthritis N Hearing Loss Y Tuberculosis N Acid Reflux (GERD) Y Hyperlipidemia N Cancer N Stroke N Asthma N Sleep Disorder N GERD/Reflux N Heart Disease N Headaches N Fibromyalgia N Hypertension Y Speech Delay N Kidney Disease N Gynecological HistoryNo gynecological history recorded. Obstetrics History GPAL:G 0 P 0 0 0 0 Past Encounters Encounter ID Performer Location Encounter Start Date Encounter Closed Date Diagnosis/Indication Diagnosis SNOMED-CT Code Diagnosis ICD10 Code Diagnosis Note [id number] Leandra Tristan NP [address] [place] [address] 12/23/2021 14:59:51 12/23/2021 16:01:32 Constipation 92452023 K59.00 Controlled with daily use of MiraLax and fiber supplement s. Recommend continued use. Nausea and vomiting 1692 1999 R11.2 Twenty year history of nausea vomiting. Continues to avoid dairy due to vomiting. Normal gastric emptying study from 11/18/2021 . Only occasional episodes of nausea at this time. She has not met with an [employer] which we have discussed. Previously declined EGD. EGD [address] Carrion. I have discussed CT abd to further evaluate nausea and epigastric pain however patient declines at this time. Epigastric pain 58511988 R10.13 Continued episodes of epigastric abdominal pain off and on for years. Normal gastric emptying study. Previously declined EGD. Gastroesop hageal reflux disease 521518294 K21.9 Controlled with low-dose PPI. [id number] Jaz Kaminski MD [facility] [place] [address] 8 08/26/2022 15:37:17 08/26/2022 16:36:02 Otalgia of left ear 0667739312 H92.02 If pain doesnt resolved with steroid will consider other workup at follow up . 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 [id number] ANGELY QUEVEDO [facility] [place] [address] 8 08/26/2022 16:39:49 08/26/2022 16:43:13 Subjective tinnitus of right ear 4218189081 169633 H93.11 Sensorineu ral hearing loss in right ear 6446582861 9100 H90.41 [id number] Jaz Kaminski MD [facility] [place] [address] 8 01/27/2023 15:07:39 01/27/2023 15:42:01 Dizziness and giddiness 464462134 R42 Winona-Halpik e negative in office today though patient was symptomati c. I would like for her to have a VNG for further evaluation . Will draw blood for for RAST food allergy testing. Explained this could take 7-10 business days for the results to come back. Will be in touch with those results when I get them. Will see her back sooner if needed. Aversion t o particular food 593172079 R63.8 [id number] ANGELY QUEVEDO [facility] [place] [address] 02/04/2023 15:54:02 02/04/2023 16:06:14 Dizziness 705133287 R42 Health Concerns Section Related Observation LastModified by Organization Detai ls LastModified Time None Recorded Concern Status LastModified by Organization Details LastModified Time None Recorded Advance Directives Directive None Recorded Payers Insurance Date Sequence Insurance Name Policy Number Policy White Covered Member ID White Member ID Guarantor Name 10/24/2023 1 [employer] (POS) [id number] Hanane Higginbotham [id number] Yg Higginbotham Notes Date Note Type Note Provider Name and Address Organization Details Recorded Time 12/23/2021 text/html Patient returns to clinic today for follow-up on nausea and vomiting. Gastric emptying study from 11/18/2021 was normal. She continues to avoid dairy due to nausea vomiting. Reports only mild episodes of nausea at this time. She has not been evaluated by [employer]. Symptoms ongoing for 20 years. She has been taking miralax and fiber supplements daily with improved constipation. Continues to drink water. Continued epigastric abdominal pain, ongoing for years. EGD/colon Dr. Carrion 2016. Leandra Tristan, ZULY [address] [place] [address], [address], [place], [address], [facility] & [place] 12/23/2021 16:12:59 08/26/2022 text/html 57yo female retu rns to the office today to discuss left ear pain. States this pain is fairly constant. Denies painful chewing. This has been present for about three months. Her last audiogram was in 2020. ALso reports her ears are itchy on ocassion. Jaz Kaminski MD [address], [place], [address], [facility] & [place] 09/02/2022 08:55:38 08/26/2022 text/html Ms. Higginbotham was see n today for an audiologic evaluation due to ongoing symptoms of R sided roaring tinnitus, and R sided muffled hearing per Dr. Jaz Kaminski MD. Ms. Higginbotham denies these symptoms in the LE. Otoscopic inspection was unremarkable bilaterally. ANGELY QUEVEDO [address], [place], [address], [facility] & [place] 08/26/2022 16:43:05 01/27/2023 text/html 01/27/23 Patient is here for dizziness after finishing a medrol you. Last seen in August of this year. Patient said the steroid made her sick to the point of vomiting. She has not ever had this reaction to oral steroids in the past. She was not able to take all of it. Patient said her dizziness is more frequent, mostly has at night when she lays down and turns to the right side. Sometimes 3-4 times per day. She also complains of nausea. Patient mentions an allergy to dairy, stating this cause her vomit. She spoke with her gastroenterology who felt she should be tested for food allergies. Jaz Kaminski MD [address], [place], [address], [facility] & [place] 01/29/2023 17:05:02 02/04/2023 text/html Ms. Higginbotham was see n today for a vestibular evaluation by way of video nystagmyography (VNG) due to ongoing (past several months) of dizziness per Dr. Jaz Kaminski MD.She was instructed to discontinue any [id number] medications at least 48 hours prior to testing. She reports that she has complied with this request. Vestibular Exam: Cerebellar Signs: No signs of cerebellar deficits. Gait: Normal gait, without assistance from a walker/wheel chair. Tremors: No present tremors. Head Shake: Normal responses to vertical and horizontal headshake testing. Hallpike:Positive for torsional nystagmus to the R Eyes: Normal OPK (Optokinetics), Normal saccades, Normal smooth pursuit; no evident visual deficits at this time. Calorics: Normal labyrinthine reactivity to bithermal calorics.. Positionals: No nystagmus present during positionals head R/L, body R/L. Gaze: No nystagmus present during gaze.. Fixation: Fixation was present 1-Discussed findings with Ms. Higginbotham. 2-Discussed cawthorne exercises due to positional dizziness (likely R BPPV). 3-F/u with Dr. Kaminski as planned. GERTRUDE ALEXIS, ANGELY [address], [place], [address], [facility] & [place] 02/04/2023 16:13:01 OBGyn Episode No OBEpisode recorded.
[2024-09-28 08:38] LABS: Basophils % 0.4 % (0.1-2.0); Eosinophils # 0.3 Kmm3 (0.0-0.4); Eosinophils % 2.5 % (0.1-12.0); Hematocrit 40.7 % (37.0-47.0); Hemoglobin 12.8 g/dL (12.2-16.2); Lymphocytes # 2.4 K/mm3 (0.7-4.5); Lymphocytes % 22.9 % (10-50); Mean Corpuscular HGB Conc 31.4 g/dL (31.8-35.4); Mean Corpuscular Hemoglobin 27.8 pg (27.0-31.2); Mean Corpuscular Volume 88.3 fl (81-99); Mean Platelet Volume 10.2 fl (7.4-10.4); Monocytes # 0.6 K/mm3 (0.1-1.0); Monocytes % 6.2 % (1.7-9.3); Nucleated Red Blood Cells # 0 10^3/uL; Nucleated Red Blood Cells % 0 %; Platelet Count 388 K/mm3 (142-424); Red Blood Count 4.61 M/mm3 (4.20-5.40); Red Cell Distribution Width 14.7 % (11.5-17.5); White Blood Count 10.4 K/mm3 (4.8-10.8)
[2024-09-28 08:42] LABS: Hemoglobin A1C 9.6 % (4.0-6.0)
[2024-09-28 09:07] LABS: Albumin Level 4.1 g/dl (3.5-5.0); Chloride 99 mmol/L (98-107); Sodium 136 mmol/L (136-145)
[2024-09-28 09:08] LABS: Potassium 4.9 mmoL/L (3.5-5.1)
[2024-09-28 09:11] LABS: Calcium 9.5 mg/dl (8.4-10.2); Glucose 250 mg/dl (74-100); HDL Cholesterol 43 mg/dl (40-60)
[2024-09-28 09:22] LABS: Direct LDL Cholesterol 73.05 mg/dL (100-129)
[2024-09-28 10:43] LABS: Alanine Aminotransferase 20 U/L (12-78); Albumin/Globulin Ratio 1.5 (1.1-1.8); Alkaline Phosphatase 68 U/L (38-126); Anion Gap 15.9 mEq/L (5-15); Aspartate Amino Transferase 21 U/L (14-36); Bilirubin,Total 0.4 mg/dl (0.2-1.3); Blood Urea Nitrogen 20 mg/dl (7-17); Carbon Dioxide 26 mmol/L (22.0-30.0); Chol/HDL Ratio 3.8 (1-3.5); Cholesterol 164 mg/dl (140-200); Estimated Glomerular Filt Rate 51 ml/min (>60); GFR (African American) 62 ML/MIN (>60); Globulin 2.7 g/dL (1.3-3.2); Total Protein,Serum 6.8 g/dl (6.3-8.2); Triglycerides 230 mg/dl (30-150); VLDL Cholesterol 46 mg/dL (0-40)
[2024-09-28 10:49] LABS: 25-OH Vitamin D, Total 23.6 ng/mL (30-100)
[2024-09-28 11:32] LABS: Vitamin B12 973 pg/mL (239-931)
== END 2024-09-28 23:59 | disposition home or self-care (01) ==
LOC: LAB 07:41
PROVIDERS: PCP Internal Medicine Adolescent Medicine; Visit Provider Internal Medicine Adolescent Medicine
DX: E55.9 Vitamin D deficiency, unspecified (principal); E78.5 Hyperlipidemia, unspecified; E11.65 Type 2 diabetes mellitus with hyperglycemia; G62.9 Polyneuropathy, unspecified
CPT/HCPCS: 36415; 80053; 80061; 82306; 82607; 83036; 85025